=== PATIENT | male | born 1930 | race Caucasian/White ===

== ENCOUNTER 2016-11-22 16:15 | Inpatient (IN) | payer MEDICARE, BC ==
--- NOTE | 2016-11-22 16:30 | ER Document Report ---
ED Medical Screen (RME) - General Stated Complaint: GENERAL CONSENT Mode of Arrival: Medic Information source: Patient Notes: Patient called EMS for complaints of weakness for the past week. Patient did reports midsternal chest pain last night, but denies any at present. No nausea , vomiting, or diarrhea. Patient does report shortness of breath, he reports mild cough hx: COPD, CAD, diabetes, peripheral vascular disease, hypertension, home oxygen I have greeted and performed a rapid initial assessment of this patient. A comprehensive ED assessment and evaluation of the patient, analysis of test results and completion of the medical decision making process will be conducted by additional ED providers. - Related Data Allergies/Adverse Reactions: cortisone Allergy (Verified 11/22/16 16:35) Physical Exam - Vital signs Vitals: Temp Pulse Resp BP Pulse Ox 98.2 F 86 16 143/62 H 97 11/22/16 16:32 11/22/16 16:32 11/22/16 16:32 11/22/16 16:32 11/22/16 16:32 - Respiratory Respiratory status: No respiratory distress. No: Tachypnea Breath sounds: Nonproductive cough Course - Vital Signs Vital signs: Temp Pulse Resp BP Pulse Ox 98.2 F 86 16 143/62 H 97 11/22/16 16:32 11/22/16 16:32 11/22/16 16:32 11/22/16 16:32 11/22/16 16:32
[2016-11-22 17:16] LABS: ABSOLUTE BASOPHILS # (AUTO) 0.1 10^3/uL (0.0-0.2); ABSOLUTE EOSINOPHILS # (AUTO) 0.3 10^3/uL (0.0-0.6); ABSOLUTE LYMPHOCYTES (AUTO) 1.2 10^3/uL (0.5-4.7); ABSOLUTE MONOCYTES (AUTO) 0.7 10^3/uL (0.1-1.4); ABSOLUTE NEUT (AUTO) 4.6 10^3/uL (1.7-8.2); EOSINOPHILS % (AUTO) 4.8 % (0-6); HEMATOCRIT 37.2 % (37.9-51.0); HEMOGLOBIN 12.2 g/dL (13.5-17.0); HGB HCT DIFFERENCE -0.6; LYMPHOCYTES % (AUTO) 17.3 % (13-45); MEAN CORPUSCULAR HEMOGLOBIN 29.5 pg (27.0-33.4); MEAN CORPUSCULAR HGB CONC 32.6 g/dL (32.0-36.0); MEAN CORPUSCULAR VOLUME 90 fl (80-97); MONOCYTES % (AUTO) 9.8 % (3-13); RED BLOOD COUNT 4.12 10^6/uL (4.35-5.55); RED CELL DISTRIBUTION WIDTH 15.4 % (11.5-14.0); SEGMENTED NEUTROPHILS % (AUTO) 67.1 % (42-78); WHITE BLOOD COUNT 6.9 10^3/uL (4.0-10.5)
[2016-11-22 17:40] LABS: ALANINE AMINOTRANSFERASE 29 U/L (21-72); ALBUMIN 3.4 g/dL (3.5-5.0); ALKALINE PHOSPHATASE 110 U/L (38-126); ANION GAP 13 (5-19); ASPARTATE AMINO TRANSFERASE 21 U/L (17-59); BILIRUBIN,DIRECT 0.3 mg/dL (0.0-0.4); BILIRUBIN,TOTAL 0.7 mg/dL (0.2-1.3); BLOOD UREA NITROGEN 22 mg/dL (7-20); CALCIUM 8.8 mg/dL (8.4-10.2); CARBON DIOXIDE 28 mmol/L (22-30); CHLORIDE 104 mmol/L (98-107); CREATINE KINASE 76 U/L (55-170); CREATININE RESULT 0.96 mg/dL (0.52-1.25); GLUCOSE 101 mg/dL (75-110); MAGNESIUM 2.1 mg/dL (1.6-2.3); POTASSIUM 3.7 mmol/L (3.6-5.0); SODIUM 145.4 mmol/L (137-145); TOTAL PROTEIN 6.1 g/dL (6.3-8.2)
[2016-11-22 17:51] LABS: CREATINE KINASE MB 1.36 ng/mL (<4.55); TROPONIN I 0.019 ng/mL
--- NOTE | 2016-11-22 19:07 | EKG REPORT ---
SEVERITY:- ABNORMAL ECG - ATRIAL FIBRILLATION, V-RATE 67-101 LEFT BUNDLE BRANCH BLOCK : Confirmed by: Ed Vasquez MD 22-Nov-2016 19:07:13
--- NOTE | 2016-11-22 19:20 | ER Document Report ---
ED General - General Chief Complaint: Weakness Stated Complaint: GENERAL CONSENT Time seen by provider: 19:15 Mode of Arrival: Medic Notes: Patient is an 86-year-old male that comes emergency department for chief complaint of feeling weak, he has had one episode each day for the past week where he has almost fallen because of feeling weak, he states he feels more short of breath than usual, he has a mild cough intermittently, he states he had some discomfort in his chest last night but denies chest pain at this time. He denies fever, nausea or vomiting, dizziness, abdominal pain. Patient is on 2 L nasal cannula at all times, history of COPD, chronic respiratory failure , afib, CAD, type II diabetes insulin-dependent. His said his bedside. He is full code. TRAVEL OUTSIDE OF THE [place] IN LAST 30 DAYS: No - Related Data Allergies/Adverse Reactions: cortisone Allergy (Verified 11/22/16 16:35) Past Medical History - General Information source: Patient - Social History Smoking Status: Former Smoker Chew tobacco use (# tins/day): No Frequency of alcohol use: None Drug Abuse: None Lives with: Family Family History: Reviewed & Not Pertinent Patient has suicidal ideation: No Patient has homicidal ideation: No - Past Medical History Cardiac Medical History: Reports: Hx Coronary Artery Disease, Hx Hypercholesterolemia, Hx Hypertension Pulmonary Medical History: Reports: Hx COPD Renal/ Medical History: Reports: Hx End Stage Renal Disease - stage lll. Denies: Hx Peritoneal Dialysis Past Surgical History: Reports: Hx Abdominal Surgery - hernia, Hx Appendectomy, Hx Pancreatic Surgery, Hx Urinary Tract Surgery - prostate - Immunizations Hx Diphtheria, Pertussis, Tetanus Vaccination: Yes Review of Systems - Review of Systems Constitutional: See HPI EENT: No symptoms reported Cardiovascular: No symptoms reported Respiratory: See HPI Gastrointestinal: No symptoms reported Genitourinary: No symptoms reported Male Genitourinary: No symptoms reported Musculoskeletal: No symptoms reported Skin: No symptoms reported Hematologic/Lymphatic: No symptoms reported Neurological/Psychological: No symptoms reported Physical Exam - Vital signs Vitals: Temp Pulse Resp BP Pulse Ox 98.2 F 86 16 143/62 H 97 11/22/16 16:32 11/22/16 16:32 11/22/16 16:32 11/22/16 16:32 11/22/16 16:32 Interpretation: Normal - General General appearance: Other - slightly pale and frail In distress: None - HEENT Head: Normocephalic, Atraumatic Eyes: Normal Conjunctiva: Normal Extraocular movements intact: Yes Eyelashes: Normal Pupils: PERRL Sinus: Normal Nasal: Normal Mouth/Lips: Normal Mucous membranes: Normal Pharynx: Normal Neck: Normal - Respiratory Respiratory status: No respiratory distress, Tachypnea - intermittent. No: Respiratory distress Chest status: Nontender Breath sounds: Decreased air movement, Other - There are a few scattered rhonchi bilaterally, there are some rales heard in the bases lower on the right side Chest palpation: Normal - Cardiovascular Rhythm: Regular, Tachycardia Heart sounds: Normal auscultation, S1 appreciated, S2 appreciated Murmur: Yes - 2/6 heard throughout - Abdominal Inspection: Normal Distension: No distension Bowel sounds: Normal Tenderness: Nontender. No: Tender, Guarding - Back Back: Normal, Nontender. No: Tender - Extremities General upper extremity: Normal inspection, Nontender, Normal ROM, Normal strength General lower extremity: Normal inspection, Nontender, Normal ROM, Normal strength - Neurological Neuro grossly intact: Yes Cognition: Normal Orientation: AAOx4 [place] Coma Scale Eye Opening: Spontaneous [place] Coma Scale Verbal: Oriented [place] Coma Scale Motor: Obeys Commands [place] Coma Scale Total: 15 Speech: Normal Cranial nerves: Normal Cerebellar coordination: Normal Motor strength normal: LUE, RUE, LLE, RLE Additional motor exam normals: Equal deckhand maintenance Sensory: Normal - Psychological Associated symptoms: Normal affect, Normal mood - Skin Skin Temperature: Warm Skin Moisture: Dry Skin Color: Normal Course - Re-evaluation Re-evalutation: On exam patient has very mild tachypnea, no hypoxia, when he rests tachypnea resolves. A few coarse rhonchi with rales heard bilaterally on the right than on the left. No peripheral edema. Progressive weakness for about a week with cough, no fever, no leukocytosis. No tachycardia, no hypotension. Cardiac enzymes unremarkable. Patient stating upfront that he feels weak and he feels like he will fall down at home and he is afraid to go home. Chest x-ray showing bilateral infiltrates with pleural effusions, patient given a dose of Levaquin for potential pneumonia. BNP added because of uncertainty of pneumonia versus failure, shows elevation, no previous to compare, nonspecific at this time. Discussed with Dr. Mace, recommends CT without to clarify treatment and clinical picture. 11/23/16 CT showing bilateral infiltrates, pleural effusion, no evidence of CHF. Will talk to hospitalist for admission due to weakness, pneumonia, chronic respiratory failure. Confirmed with Dr. Mace. Patient also has fairly frequent episodes of bradycardia, sometimes down into the upper 30s. Cardizem most likely needs to be held or adjusted. Discussed with Dr. Desir, patient will be admitted to [facility]. - Vital Signs Vital signs: Temp Pulse Resp BP Pulse Ox 98.2 F 78 12 110/54 L 99 11/22/16 16:32 11/22/16 19:41 11/23/16 04:01 11/23/16 04:01 11/23/16 04:01 - Laboratory Result Diagrams: 11/22/16 16:45 11/22/16 16:45 Laboratory results interpreted by me: 11/22/16 11/22/16 11/22/16 16:45 16:45 19:10 RBC 4.12 L Hgb 12.2 L Hct 37.2 L RDW 15.4 H Sodium 145.4 H BUN 22 H NT-Pro-B Natriuret Pep Total Protein 6.1 L Albumin 3.4 L Urine Blood SMALL H 11/22/16 21:35 RBC Hgb Hct RDW Sodium BUN NT-Pro-B Natriuret Pep 03051 H Total Protein Albumin Urine Blood Discharge - Discharge Clinical Impression: Shortness of breath Pneumonia Qualifiers: Pneumonia type: due to unspecified organism Laterality: bilateral Lung location : unspecified part of lung Qualified Code(s): J18.9 - Pneumonia, unspecified organism Chronic respiratory failure Qualifiers: Respiratory failure complication: unspecified whether with hypoxia or hypercapnia Qualified Code(s): J96.10 - Chronic respiratory failure, unspecified whether with hypoxia or hypercapnia Disposition: ADMITTED INPATIENT Admitting Provider: Hospitalist Unit Admitted: [facility]
[2016-11-22 19:30] LABS: APPEARANCE,URINE CLEAR; BILIRUBIN,URINE NEGATIVE (NEGATIVE); GLUCOSE, URINE NEGATIVE (NEGATIVE); KETONES,URINE NEGATIVE (NEGATIVE); LEUKOCYTE ESTERASE,URINE NEGATIVE (NEGATIVE); NITRITE,URINE NEGATIVE (NEGATIVE); PROTEIN,URINE NEGATIVE (NEGATIVE); URINE SPECIFIC GRAVITY 1.011; UROBILINOGEN,URINE NEGATIVE mg/dL (<2.0)
[2016-11-22] MEDS ORDERED: LEVOFLOXACIN 750 MG/D5W RTU 150 ML IV ONE (21:27)
[2016-11-22 21:53] LABS: VENOUS BLOOD BASE EXCESS 2.7 mmol/L; VENOUS BLOOD HCO3 28.1 mmol/L (20-32); VENOUS BLOOD PCO2 45.9 mmHg (35-63); VENOUS BLOOD PH 7.4 (7.30-7.42)
[2016-11-23] MEDS ORDERED: ONDANSETRON HCL INJ/PF 4 MG/2 ML SDV IV PRN (08:47)
[2016-11-23] MEDS ORDERED: ALBUTEROL SULFATE 0.083% NEB 2.5 MG/3 ML AMPUL NEB PRN (08:53)
[2016-11-23] MEDS ORDERED: DEXTROSE 50%-WATER 25 GM/50 ML DISP.SYRIN IV PRN ×2 (08:56)
[2016-11-23] MEDS ORDERED: GLUCAGON,HUMAN RECOMB 1 MG INJ IM PRN (08:56)
[2016-11-23] MEDS ORDERED: INSULIN LISPRO 100 UNIT/ML 3 ML VIAL SUBCUT PRN (08:56)
[2016-11-23] MEDS ORDERED: DEXTROSE 40% GEL 15 GM TUBE PO PRN ×2 (08:56)
[2016-11-23] MEDS ORDERED: PHARMACY COMMUNICATION ORDER MC NR (09:15)
--- NOTE | 2016-11-23 09:30 | PDOC H&P ---
History of Present Illness Admission Date/PCP: 11/23/16 04:43 RANDY JEFFERY, Patient complains of: Weakness History of Present Illness: AISHWARYA MCLAUGHLIN JR is a 86 year old male with past medical history of oxygen dependent COPD, A. 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 Patient has had some dyspnea on exertion. He denies cough or fever. His states that he has not been taking his Lasix as much because he has urinary incontinence issues when he is on the Lasix. Patient's past medical history is notable for the fact that he also has had a right pleural effusion for which she had a Pleurx catheter placed and maintained for approximately one year. This was followed by Dr. Espinal of pulmonary medicine. Pleurx catheter was eventually discontinued. His last echocardiogram on record was in 2012 and at that time showed normal EF , LVH, moderate AR, moderate MR, moderate TR. Patient also has history of BPH and bladder dysfunction. He apparently has an implantable bladder stimulator. Emergency department provider noted that patient's heart rate was in the upper 30s on telemetry monitoring in the emergency department. At the time of my evaluation heart rate is in the upper 80s and patient is in atrial fibrillation. Patient currently has home health services in place with [facility]. Medications listed below have not been verified at the time of this documentation. Past Medical History Cardiac Medical History: Reports: Atrial Fibrillation, Congestive Heart Failure , Coronary Artery Disease, Hyperlipidema, Hypertension, Peripheral Vascular Disease Pulmonary Medical History: Reports: Chronic Obstructive Pulmonary Disease (COPD ) - Home oxygen dependent, Other - Pleural effusions Neurological Medical History: Reports: Ischemic CVA Endocrine Medical History: Reports: Diabetes Mellitus Type 2 - Steroid induced hyperglycemia Renal/ Medical History: Reports: Chronic Kidney Disease - Stage III Malignancy Medical History: Reports: Other GI Medical History: Reports: Gastroesophageal Reflux Disease Psychiatric Medical History: Reports: Dementia Hematology: Reports: Other - Thrombocytopenia-followed by Dr. Mathew, treated at [facility] with chemotherapy in the past Past Surgical History Past Surgical History: Reports: Appendectomy, Herniorrhaphy, Other - Prostate surgery, Implantable bladder stimulator Social History Information Source: Patient Lives with: Spouse/Significant other Smoking Status: Former Smoker Frequency of Alcohol Use: None Hx Recreational Drug Use: No Hx Prescription Drug Abuse: No - Advance Directive Resuscitation Status: Do Not Resuscitate Surrogate healthcare decision maker:: Family History Family History: Reviewed & Not Pertinent Parental Family History Reviewed: Yes Children Family History Reviewed: Yes Sibling(s) Family History Reviewed.: Yes Medication/Allergy Allergies/Adverse Reactions: cortisone Allergy (Verified 11/22/16 16:35) Review of Systems Constitutional: PRESENT: weakness. ABSENT: chills, fever(s), headache(s), weight gain, weight loss Eyes: ABSENT: visual disturbances Ears: ABSENT: hearing changes Cardiovascular: PRESENT: dyspnea on exertion. ABSENT: chest pain, edema, orthropnea, palpitations Respiratory: ABSENT: cough, hemoptysis Gastrointestinal: ABSENT: abdominal pain, constipation, diarrhea, hematemesis, hematochezia, nausea, vomiting Genitourinary: ABSENT: dysuria, hematuria Musculoskeletal: ABSENT: joint swelling Integumentary: ABSENT: rash, wounds Neurological: ABSENT: abnormal gait, abnormal speech, confusion, dizziness, focal weakness, syncope Psychiatric: ABSENT: anxiety, depression, homidical ideation, suicidal ideation Endocrine: ABSENT: cold intolerance, heat intolerance, polydipsia, polyuria Hematologic/Lymphatic: ABSENT: easy bleeding, easy bruising Physical Exam Vital Signs: Temp Pulse Resp BP Pulse Ox 98.2 F 78 14 135/82 H 99 11/22/16 16:32 11/22/16 19:41 11/23/16 08:01 11/23/16 08:01 11/23/16 06:01 PHYSICAL EXAM: GENERAL: Appears well, no acute distress HEENT: Normocephalic, no scleral icterus, conjunctiva clear, EOEM intact, PERRLA , moist mucous membranes NECK: trachea midline, no thyromegally RESPIRATORY: Crackles in both anterior lung chapin CARDIAC: Regular rate and rhythm, no murmur/nate/rub ABDOMEN: Soft, no distension, no tenderness, no guarding, normal bowel sounds, negative Moreland sign RECTAL: deferred : deferred EXTREMITIES: Pitting edema in bilateral lower extremities MUSCULOSKELETAL: No joint swelling or deformity VASCULAR: normal peripheral pulses NEUROLOGIC: Alert, oriented to person/place/time, normal speech, cranial nerves grossly intact, 5/5 strength in all extremities, tactile sensation intact in all extremities SKIN: No rash, no wounds, no worrisome skin lesions PSYCHIATRIC: Normal mood, normal affect Results Impressions: Chest X-Ray 11/22/16 16:37 IMPRESSION: Diffuse interstitial thickening. Bilateral basilar airspace disease and moderate pleural effusions. Chest CT 11/22/16 22:57 IMPRESSION: Consolidation is present in both lower lobes, left greater than right. Moderately large left pleural effusion. Small right pleural effusion. Assessment & Plan - Diagnosis (1) Acute on chronic respiratory failure with hypoxemia Is this a current diagnosis for this admission?: YesPlan: Patient is chronic home oxygen dependent at baseline. Continue oxygen supplementation. Consult Dr. Espinal of pulmonary medicine as he is familiar with this patient. I have discussed patient with Dr. Espinal today. (2) Heart failure, diastolic, with acute decompensation Is this a current diagnosis for this admission?: YesPlan: Patient has acutely decompensated congestive heart failure secondary to diastolic dysfunction and valvular heart disease. Repeat echocardiogram as patient has not had an echocardiogram in 4 years. He is normally followed by Dr. Marley of cardiology. Start Lasix 20 mg IV every 12 hours. Monitor strict I/O's. Continue Toprol-XL 25 mg daily. (3) COPD (chronic obstructive pulmonary disease) Is this a current diagnosis for this admission?: YesPlan: When necessary albuterol. (4) Bronchiectasis Is this a current diagnosis for this admission?: Yes (5) Pleural effusion Is this a current diagnosis for this admission?: YesPlan: Patient has moderate to large left pleural effusion, small right pleural effusion. This is likely secondary to decompensated CHF. Treat CHF. Consult Dr. Espinal of pulmonary medicine. (6) Hypertension Is this a current diagnosis for this admission?: Yes (7) Atrial fibrillation Qualifiers: Atrial fibrillation type: chronic Qualified Code(s): I48.2 - Chronic atrial fibrillation Is this a current diagnosis for this admission?: YesPlan: Decrease Cardizem CD to 180 mg daily secondary to bradycardia noted on telemetry. Continue Toprol-XL 25 mg daily. I have discussed this with Dr. Duval's patient's primary care provider and he states that patient is not on full anticoagulation secondary to bleeding complications and prior thrombocytopenia. (8) Remote history of stroke Is this a current diagnosis for this admission?: YesPlan: Continue Lipitor. Start aspirin 81 mg daily. (9) Diabetes mellitus Is this a current diagnosis for this admission?: YesPlan: According to patient's this is only issue when he is on corticosteroids. He does not take chronic medications for this. I will check Accu-Cheks twice daily and administer sliding scale insulin as needed. (10) Urinary incontinence Is this a current diagnosis for this admission?: YesPlan: Continue home dose of Mybetriq. Patient has implantable bladder stimulator. (11) Pneumonia Qualifiers: Pneumonia type: due to unspecified organism Laterality: bilateral Lung location: unspecified part of lung Qualified Code(s): J18.9 - Pneumonia, unspecified organism Is this a current diagnosis for this admission?: YesPlan: Chest CT shows bilateral airspace disease. Patient is afebrile and has normal white blood count. Continue Levaquin initiated in the emergency department pending blood cultures and sputum cultures. (12) DNR (do not resuscitate) Is this a current diagnosis for this admission?: Yes - Time Time Spent: Greater than 70 Minutes Anticipated discharge: Home with Homehealth
[2016-11-23] MEDS ORDERED: LEVOFLOXACIN 750 MG/D5W RTU 750 MG/150 ML RTUPB IV SCH (10:00)
[2016-11-23] MEDS: POTASSIUM CHLORIDE 10 MEQ TABLET.SA PO SCH ×2 (11:47→21:13)
[2016-11-23] MEDS: DILTIAZEM HCL 180 MG CAPSULE.CR PO SCH (11:47)
[2016-11-23] MEDS: ASPIRIN 81 MG TABLET, ENT COATED PO SCH (11:48)
[2016-11-23] MEDS: FUROSEMIDE INJ/PF 20 MG/2 ML SDV IV SCH ×2 (11:48→21:12)
[2016-11-23] MEDS: METOPROLOL SUCCINATE 25 MG TAB.SR.24H PO SCH (11:48)
[2016-11-23] MEDS: LISINOPRIL 10 MG TABLET PO SCH (11:49)
[2016-11-23 14:13] LABS: PARTIAL THROMBOPLASTIN TIME 28.9 SEC (23.5-35.8); PROTHROMBIN TIME 14.7 SEC (11.4-15.4)
[2016-11-23] MEDS: HEPARIN SOD (PORCINE) 5,000 UNIT/ML 1 ML SYRINGE SUBCUT SCH ×2 (14:24→21:18)
[2016-11-23] MEDS: LEVOFLOXACIN 750 MG/D5W RTU 750 MG/150 ML RTUPB IV SCH (15:50)
[2016-11-23 17:07] LABS: FLUID APPEARANCE HAZY; FLUID RBC DILUENT USED NONE USED; FLUID RBC DILUTION FACTOR 1; FLUID RBC SIDE 1 167; FLUID RBC SIDE 2 163; FLUID TYPE PLEURAL; TOTAL RBC SQUARES COUNTED FLD 25
--- NOTE | 2016-11-23 19:53 | XCELERA REPORT ---
[address] [address] Transthoracic Echocardiogram Report Name: AISHWARYA MCLAUGHLIN JR Age: 86 yrs Gender: Male : 1930 Patient Status: Inpatient Patient Location: \S\[facility]\S\A Study Date: 11/23/2016 10:11 AM Height: 67 in Weight: 132 lb BSA: 1.7 m2 Procedure: A complete two-dimensional transthoracic echocardiogram was performed (2D, M-mode, spectral and color flow Doppler). The study was technically difficult with many images being suboptimal in quality. Reason For Study: acute chf Ordering Physician: RASHAWN PEREZ Performed By: Tico Payton Interpretation Summary Left ventricular systolic function is mildly reduced. The Ejection Fraction estimate is 40-45% There is borderline concentric left ventricular hypertrophy. The left ventricle is borderline dilated. LV diastolic function could not be adequately assessed. Regional wall motion abnormalities cannot be excluded due to limited visualization. The right ventricular systolic function is normal. The right atrium is mildly dilated. The left atrium is severely dilated. There is a moderate amount of mitral regurgitation There is no mitral valve stenosis. There is a mild amount of aortic regurgitation There is a moderate amount of tricuspid regurgitation There is servere pulmonary hypertension by echo Right ventricular systolic pressure is estimated to be elevated at >60mmHg. The aortic root is not well visualized. The inferior vena cava appeared normal and decreased > 50% with respiration (RAP 5-10 mmHg) There is no pericardial effusion. MMode/2D Measurements \T\ Calculations RVDd: 2.0 cm LVIDd: 5.5 cm FS: 21.8 % Ao root diam: IVSd: 1.1 cm LVIDs: 4.3 cm EDV(Teich): 3.2 cm LVPWd: 1.0 cm 145.1 ml Ao root area: ESV(Teich): 81.9 ml 8.2 cm2 EF(Teich): LA dimension: 43.6 % 4.9 cm LVLd ap4: 8.4 cm SV(MOD-sp4): 47.0 ml LA A2Cs: LA A4Cs: 33.5 cm2 EDV(MOD-sp4): 34.1 cm2 128.0 ml LVLs ap4: 8.1 cm ESV(MOD-sp4): 81.0 ml EF(MOD-sp4): 36.7 % LA length: 6.8 cm LA Vol Index (BP): LA Volume: 84.6 ml/m2 143.4 ml Doppler Measurements \T\ Calculations MV E max rakel: MV P1/2t max rakel: Ao V2 max: AI max rakel: 116.3 cm/sec 118.4 cm/sec 118.7 cm/sec 393.2 cm/sec MV P1/2t: 51.2 msec Ao max PG: AI max PG: MVA(P1/2t): 4.3 cm2 5.6 mmHg 62.0 mmHg MV dec slope: AI dec slope: 677.0 cm/sec2 206.3 cm/sec2 AI P1/2t: 558.2 msec LV V1 max PG: PA V2 max: PI end-d rakel: TR max rakel: 2.1 mmHg 71.0 cm/sec 137.1 cm/sec 407.8 cm/sec LV V1 max: PA max P.0 mmHg TR max P.9 cm/sec 66.9 mmHg RVSP(TR): 76.9 mmHg RAP systole: 10.0 mmHg Left Ventricle The left ventricle is borderline dilated. There is borderline concentric left ventricular hypertrophy. Left ventricular systolic function is mildly reduced. The Ejection Fraction estimate is 40-45%. LV diastolic function could not be adequately assessed. Regional wall motion abnormalities cannot be excluded due to limited visualization. Right Ventricle The right ventricle is grossly normal size. There is normal right ventricular wall thickness. The right ventricular systolic function is normal. Atria The right atrium is mildly dilated. The left atrium is severely dilated. Interarterial septum not well visualized and not well dopplered. Cannot comment on ASD/PFO presence. Mitral Valve The mitral valve leaflets are sclerotic and show some degree of functional abnormality. There is no mitral valve stenosis. There is a moderate amount of mitral regurgitation. Aortic Valve The aortic valve is grossly normal. There is no aortic valve stenosis. There is a mild amount of aortic regurgitation. Tricuspid Valve The tricuspid valve is not well visualized, but is grossly normal. There is no tricuspid stenosis. There is a moderate amount of tricuspid regurgitation. There is servere pulmonary hypertension by echo. Right ventricular systolic pressure is estimated to be elevated at >60mmHg. Pulmonic Valve The pulmonic valve is not well visualized. Great Vessels The aortic root is not well visualized. The inferior vena cava appeared normal and decreased > 50% with respiration (RAP 5-10 mmHg). Effusions There is no pericardial effusion. : RASHAWN PEREZ > Ana Maria Ford
--- NOTE | 2016-11-23 20:56 | PDOC CONSULTATION ---
Consultation Consult Date: 11/23/16 Attending physician:: NANCY CHRISTINA Consult reason:: effusions History of Present Illness Admission Date/PCP: 11/23/16 08:48 RANDY JEFFERY, History of Present Illness: AISHWARYA MCLAUGHLIN JR is a 86 year old male with past medical history of oxygen dependent COPD, A. 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 Patient has had some dyspnea on exertion. He denies cough or fever. His states that he has not been taking his Lasix as much because he has urinary incontinence issues when he is on the Lasix. unfortunately he has adjusted his diuretic therapy w/o medical advice;resulting in increasing dyspnea.He denies nausea,vomiting,fever,chill currently talking is limited by resipiratory rate Past Medical History Cardiac Medical History: Reports: Atrial Fibrillation, Congestive Heart Failure , Coronary Artery Disease, Hyperlipidema, Hypertension, Peripheral Vascular Disease Pulmonary Medical History: Reports: Chronic Obstructive Pulmonary Disease (COPD ) - Home oxygen dependent, Other - Pleural effusions EENT Medical History: Reports: Other - Thrombocytopenia-followed by Dr. Mathew , treated at [facility] with chemotherapy in the past Neurological Medical History: Reports: Ischemic CVA Endocrine Medical History: Reports: Diabetes Mellitus Type 2 - Steroid induced hyperglycemia Renal/ Medical History: Reports: Chronic Kidney Disease - Stage III, End Stage Renal Disease - stage lll Malignancy Medical History: Reports: Other GI Medical History: Reports: Gastroesophageal Reflux Disease Psychiatric Medical History: Reports: Dementia Hematology: Reports: Other - Thrombocytopenia-followed by Dr. Mathew, treated at [facility] with chemotherapy in the past Past Surgical History Past Surgical History: Reports: Appendectomy, Herniorrhaphy, Other - Prostate surgery, Implantable bladder stimulator Social History Lives with: Spouse/Significant other Smoking Status: Former Smoker Passive smoke exposure as: Both Frequency of Alcohol Use: None Hx Recreational Drug Use: No Hx Prescription Drug Abuse: No Do you have pets?: No Have you had any respiratory illnesses as a child?: No Have you been exposed to any sick contacts recently?: No Have you had any recent respiratory illnesses?: No Have you travelled outside of [place] in the past 12 months?: No - Advance Directive Resuscitation Status: Do Not Resuscitate Family History Family History: Reviewed & Not Pertinent Parental Family History Reviewed: Yes Children Family History Reviewed: Yes Sibling(s) Family History Reviewed.: Yes Medication/Allergy Home Medications: Albuterol Sulfate [Proair HFA] 2 puff IH Q4HP PRN 11/23/16 Alendronate Sodium [Fosamax "Weekly" 35 mg Tablet] 35 mg PO ENGLISH 11/23/16 Atorvastatin Calcium [Lipitor 20 mg Tablet] 20 mg PO QHS 11/23/16 Diltiazem HCl [Cartia Xt] 240 mg PO DAILY 11/23/16 Furosemide [Lasix] 40 mg PO BID 11/23/16 Iron Ps Cmplx/Vit B12/FA [Poly-Iron 150 Forte Capsule] 1 cap PO DAILY 11/23/16 Lisinopril [Prinivil 10 mg Tablet] 10 mg PO BID 11/23/16 Metoprolol Tartrate [Lopressor 25 mg Tablet] 12.5 mg PO BID 11/23/16 Nitroglycerin [Nitro-Dur 5 mg (0.2 mg/Hr) Transdermal Patch] 1 patch TOP Q12 Pantoprazole Sodium [Protonix] 40 mg PO DAILY 11/23/16 Potassium Chloride [Klor-Con 10] 10 meq PO BID 11/23/16 Allergies/Adverse Reactions: cortisone Allergy (Verified 11/22/16 16:35) Physical Exam Vital Signs: Temp Pulse Resp BP Pulse Ox 98.2 F 78 23 H 138/74 H 99 11/22/16 16:32 11/22/16 19:41 11/23/16 12:02 11/23/16 12:02 11/23/16 06:01 General appearance: PRESENT: cooperative, disheveled, mild distress, thin, well- developed Head exam: PRESENT: atraumatic, normocephalic Eye exam: PRESENT: conjunctiva pink, EOMI Mouth exam: PRESENT: dry mucosa, neck supple Neck exam: ABSENT: carotid bruit, JVD, lymphadenopathy, thyromegaly Respiratory exam: PRESENT: crackles, decreased breath sounds, prolonged expiratory phas, tachypnea, other - absent breath sounds r lateral and post chest rodriguez Cardiovascular exam: PRESENT: irregular rhythm, systolic murmur Pulses: PRESENT: normal radial pulses GI/Abdominal exam: PRESENT: ascites, normal bowel sounds, soft. ABSENT: distended, guarding, mass, organolmegaly, rebound, tenderness Rectal exam: PRESENT: deferred Extremities exam: PRESENT: +2 edema - L Lext>R L ext Psychiatric exam: PRESENT: flat affect Skin exam: PRESENT: dry, pallor, warm, other - subq eccymosis ext Results Impressions: Chest X-Ray 11/22/16 16:37 IMPRESSION: Diffuse interstitial thickening. Bilateral basilar airspace disease and moderate pleural effusions. Chest CT 11/22/16 22:57 IMPRESSION: Consolidation is present in both lower lobes, left greater than right. Moderately large left pleural effusion. Small right pleural effusion. Assessment & Plan - Diagnosis (1) Acute on chronic respiratory failure with hypoxemia Is this a current diagnosis for this admission?: YesPlan: pleural effusion chf (2) Atrial fibrillation Qualifiers: Atrial fibrillation type: chronic Qualified Code(s): I48.2 - Chronic atrial fibrillation Is this a current diagnosis for this admission?: YesPlan: stable rate (3) COPD (chronic obstructive pulmonary disease) Is this a current diagnosis for this admission?: Yes (4) DNR (do not resuscitate) Is this a current diagnosis for this admission?: Yes (5) Pleural effusion Is this a current diagnosis for this admission?: YesPlan: mild distress asked radiology for stat r thoracentesis they aggreed
[2016-11-23] MEDS: ATORVASTATIN CALCIUM 20 MG TABLET PO SCH (21:12)
[2016-11-23] MEDS: NITROGLYCERIN 5 MG (0.2 MG/HR) PATCH.TD24 TOP SCH (21:29)
[2016-11-23] MEDS ORDERED: NITROGLYCERIN 5 MG (0.2 MG/HR) PATCH.TD24 TOP SCH (22:00)
[2016-11-24 04:51] LABS: ABSOLUTE EOSINOPHILS # (AUTO) 0.2 10^3/uL (0.0-0.6); ABSOLUTE MONOCYTES (AUTO) 0.9 10^3/uL (0.1-1.4); BASOPHILS % (AUTO) 0.5 % (0-2); EOSINOPHILS % (AUTO) 2.4 % (0-6); HEMATOCRIT 34.9 % (37.9-51.0); HEMOGLOBIN 11.6 g/dL (13.5-17.0); HGB HCT DIFFERENCE -0.1; LYMPHOCYTES % (AUTO) 10.5 % (13-45); MEAN CORPUSCULAR HEMOGLOBIN 29.5 pg (27.0-33.4); MEAN CORPUSCULAR HGB CONC 33.1 g/dL (32.0-36.0); MEAN CORPUSCULAR VOLUME 89 fl (80-97); MONOCYTES % (AUTO) 10.1 % (3-13); RED BLOOD COUNT 3.91 10^6/uL (4.35-5.55); RED CELL DISTRIBUTION WIDTH 15.2 % (11.5-14.0); SEGMENTED NEUTROPHILS % (AUTO) 76.5 % (42-78); WHITE BLOOD COUNT 9.1 10^3/uL (4.0-10.5)
[2016-11-24 05:26] LABS: FREE T3 2.89 pg/mL (2.77-5.27)
[2016-11-24 05:39] LABS: THYROID STIMULATING HORMONE 2.62 uIU/mL (0.47-4.68)
[2016-11-24] MEDS: HEPARIN SOD (PORCINE) 5,000 UNIT/ML 1 ML SYRINGE SUBCUT SCH ×3 (06:47→21:54)
[2016-11-24] MEDS: LANSOPRAZOLE 30 MG TAB.RAP.DR PO SCH (06:47)
[2016-11-24] MEDS: DILTIAZEM HCL 180 MG CAPSULE.CR PO SCH (09:31)
[2016-11-24] MEDS: ASPIRIN 81 MG TABLET, ENT COATED PO SCH (09:31)
[2016-11-24] MEDS: NITROGLYCERIN 5 MG (0.2 MG/HR) PATCH.TD24 TOP SCH ×2 (09:32→21:54)
[2016-11-24] MEDS: FUROSEMIDE INJ/PF 20 MG/2 ML SDV IV SCH ×2 (09:32→21:54)
[2016-11-24] MEDS: METOPROLOL SUCCINATE 25 MG TAB.SR.24H PO SCH (09:33)
[2016-11-24] MEDS: LISINOPRIL 10 MG TABLET PO SCH (09:33)
[2016-11-24] MEDS: POTASSIUM CHLORIDE 10 MEQ TABLET.SA PO SCH ×2 (09:34→21:54)
[2016-11-24] MEDS ORDERED: VIT B12 PO SCH (10:00)
[2016-11-24] MEDS ORDERED: IRON PS CMPLX PO SCH (10:00)
[2016-11-24] MEDS ORDERED: [UNRECOGNIZED DRUG - OTHER] PO SCH (10:00)
[2016-11-24] MEDS ORDERED: LORAZEPAM INJ 2 MG/1 ML VIAL IV PRN (12:15)
--- NOTE | 2016-11-24 15:59 | PDOC PROGRESS REPORT ---
Subjective Progress Note for:: 11/24/16 Subjective:: awake feels better Physical Exam Vital Signs: Temp Pulse Resp BP Pulse Ox 97.8 F 86 20 148/69 H 99 11/24/16 08:00 11/24/16 08:00 11/24/16 08:00 11/24/16 08:00 11/24/16 08:00 Pulse Oximeter Continuous Start: 11/23/16 15: 49 Freq: RTQ4 Status: Active Document 11/24/16 03:13 [facility] (Rec: 11/24/16 03:13 [facility] [email or web address]) Pulse Oximetry Assessment Oxygen Saturation (92-100) 95 Oxygen Flow Rate (L/min) 2.0 Oxygen Delivery Method Nasal Cannula Fraction of Inspired Oxygen (FIO2) 28 Equipment Usage Equipment in Use Continuous SpO2 Machine # [id number] Intake & Output 11/23/16 11/24/16 11/25/16 06:59 06:59 06:59 Intake Total 510 Output Total 1500 Balance -990 Weight 60.2 kg General appearance: PRESENT: no acute distress, disheveled, thin, well-developed Head exam: PRESENT: atraumatic, normocephalic Eye exam: PRESENT: conjunctiva pale, EOMI Mouth exam: PRESENT: neck supple, tongue midline Neck exam: ABSENT: carotid bruit, JVD, lymphadenopathy, thyromegaly Respiratory exam: PRESENT: decreased breath sounds, prolonged expiratory phas, rhonchi, unlabored Cardiovascular exam: PRESENT: irregular rhythm - bs decreased bibasilar L>R Pulses: PRESENT: normal radial pulses GI/Abdominal exam: PRESENT: normal bowel sounds, soft. ABSENT: distended, guarding, mass, organolmegaly, rebound, tenderness Gentrourinary exam: PRESENT: indwelling catheter Musculoskeletal exam: PRESENT: normal inspection Neurological exam: PRESENT: awake Psychiatric exam: PRESENT: normal mood Skin exam: PRESENT: dry, warm Results Laboratory Results: 11/24/16 03:58 11/23/16 11/24/16 11/24/16 15:15 03:58 03:58 WBC 9.1 RBC 3.91 L Hgb 11.6 L Hct 34.9 L MCV 89 MCH 29.5 MCHC 33.1 RDW 15.2 H Plt Count 233 Seg Neutrophils % 76.5 Lymphocytes % 10.5 L Monocytes % 10.1 Eosinophils % 2.4 Basophils % 0.5 Absolute Neutrophils 7.0 Absolute Lymphocytes 1.0 Absolute Monocytes 0.9 Absolute Eosinophils 0.2 Absolute Basophils 0.0 Magnesium 1.9 TSH Free T4 Free T3 pg/mL Fluid Type PLEURAL Fluid Source LUNG Fluid Color YELLOW Fluid Appearance HAZY Fluid Viscosity SLIGHTLY VISCOUS Fluid WBC 277 Fluid RBC 1650 11/24/16 03:58 WBC RBC Hgb Hct MCV MCH MCHC RDW Plt Count Seg Neutrophils % Lymphocytes % Monocytes % Eosinophils % Basophils % Absolute Neutrophils Absolute Lymphocytes Absolute Monocytes Absolute Eosinophils Absolute Basophils Magnesium TSH 2.62 Free T4 1.30 Free T3 pg/mL 2.89 Fluid Type Fluid Source Fluid Color Fluid Appearance Fluid Viscosity Fluid WBC Fluid RBC Impressions: Chest CT 11/22/16 22:57 IMPRESSION: Consolidation is present in both lower lobes, left greater than right. Moderately large left pleural effusion. Small right pleural effusion. Thoracentesis Ultrasound 11/23/16 13:02 IMPRESSION: SUCCESSFUL THORACENTESIS USING ULTRASOUND GUIDANCE. Chest X-Ray 11/24/16 06:00 IMPRESSION: Stable appearance of bilateral pleural effusions. Assessment & Plan - Diagnosis (1) Acute on chronic respiratory failure with hypoxemia Is this a current diagnosis for this admission?: YesPlan: improvement in pleural effusion and chf (2) Atrial fibrillation Qualifiers: Atrial fibrillation type: chronic Qualified Code(s): I48.2 - Chronic atrial fibrillation Is this a current diagnosis for this admission?: YesPlan: stable rate (3) COPD (chronic obstructive pulmonary disease) Is this a current diagnosis for this admission?: Yes (4) DNR (do not resuscitate) Is this a current diagnosis for this admission?: Yes (5) Pleural effusion Is this a current diagnosis for this admission?: Yes - Time Critical Time spent with patient: 25-34 minutes
--- NOTE | 2016-11-24 18:30 | PDOC PROGRESS REPORT ---
Subjective Progress Note for:: 11/24/16 Subjective:: AISHWARYA MCLAUGHLIN JR is a 86 year old male with past medical history of oxygen dependent COPD, A. 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 Patient has had some dyspnea on exertion. He denies cough or fever. His states that he has not been taking his Lasix as much because he has urinary incontinence issues when he is on the Lasix. Patient's past medical history is notable for the fact that he also has had a right pleural effusion for which he had a Pleurx catheter placed and maintained for approximately one year. This was followed by Dr. Espinal of pulmonary medicine. Pleurx catheter was eventually discontinued. His last echocardiogram on record was in 2012 and at that time showed normal EF , LVH, moderate AR, moderate MR, moderate TR. Patient also has history of BPH and bladder dysfunction. He apparently has an implantable bladder stimulator. Patient has home health services in place with [facility]. Yesterday, patient had a 600 mL thoracentesis yielding clear yellow fluid. Today, she tells me he is breathing much better and denies shortness of breath. Physical Exam Vital Signs: Temp Pulse Resp BP Pulse Ox 98 F 76 20 140/75 H 94 11/24/16 16:00 11/24/16 16:00 11/24/16 16:00 11/24/16 16:00 11/24/16 16:00 Pulse Oximeter Continuous Start: 11/23/16 15: 49 Freq: RTQ4 Status: Active Document 11/24/16 15:55 [facility] (Rec: 11/24/16 17:18 [facility] [email or web address]) Pulse Oximetry Assessment Oxygen Saturation (92-100) 97 Oxygen Flow Rate (L/min) 2 Oxygen Delivery Method Nasal Cannula Equipment Usage Equipment in Use Continuous SpO2 Machine # [id number] Intake & Output 11/23/16 11/24/16 11/25/16 06:59 06:59 06:59 Intake Total 510 474 Output Total 1500 1000 Balance -990 -526 Weight 60.2 kg Additional comments: GENERAL: Appears well, no acute distress HEENT: Normocephalic, no scleral icterus, conjunctiva clear, EOEM intact, PERRLA , moist mucous membranes NECK: trachea midline, no thyromegally RESPIRATORY: diminished breath sounds at both bases CARDIAC: Regular rate and rhythm, no murmur/nate/rub ABDOMEN: Soft, no distension, no tenderness, no guarding, normal bowel sounds, negative Moreland sign RECTAL: deferred : deferred EXTREMITIES: 2+ Pitting edema in bilateral lower extremities MUSCULOSKELETAL: No joint swelling or deformity VASCULAR: normal peripheral pulses NEUROLOGIC: Alert, oriented to person/place/time, normal speech, cranial nerves grossly intact, 5/5 strength in all extremities, tactile sensation intact in all extremities SKIN: No rash, no wounds, no worrisome skin lesions PSYCHIATRIC: Normal mood, normal affect Results Laboratory Results: 11/24/16 03:58 11/24/16 11/24/16 11/24/16 03:58 03:58 03:58 WBC 9.1 RBC 3.91 L Hgb 11.6 L Hct 34.9 L MCV 89 MCH 29.5 MCHC 33.1 RDW 15.2 H Plt Count 233 Seg Neutrophils % 76.5 Lymphocytes % 10.5 L Monocytes % 10.1 Eosinophils % 2.4 Basophils % 0.5 Absolute Neutrophils 7.0 Absolute Lymphocytes 1.0 Absolute Monocytes 0.9 Absolute Eosinophils 0.2 Absolute Basophils 0.0 Magnesium 1.9 TSH 2.62 Free T4 1.30 Free T3 pg/mL 2.89 Impressions: Chest CT 11/22/16 22:57 IMPRESSION: Consolidation is present in both lower lobes, left greater than right. Moderately large left pleural effusion. Small right pleural effusion. Thoracentesis Ultrasound 11/23/16 13:02 IMPRESSION: SUCCESSFUL THORACENTESIS USING ULTRASOUND GUIDANCE. Chest X-Ray 11/24/16 06:00 IMPRESSION: Stable appearance of bilateral pleural effusions. Assessment & Plan - Diagnosis (1) Acute on chronic respiratory failure with hypoxemia Is this a current diagnosis for this admission?: YesPlan: Patient is on home oxygen. We'll continue current oxygen supplementation. (2) Heart failure, diastolic, with acute decompensation Is this a current diagnosis for this admission?: YesPlan: Agent has chronic congestive heart failure due to diastolic dysfunction and valvular heart disease. The patient had acute compensation likely from reducing the Lasix dose. He currently feels better after thoracentesis yesterday. We will continue to monitor the I's and O's on current Rx. (3) COPD (chronic obstructive pulmonary disease) Is this a current diagnosis for this admission?: YesPlan: Followed by Dr. Espinal. (4) Bronchiectasis Is this a current diagnosis for this admission?: Yes (5) Pleural effusion Is this a current diagnosis for this admission?: YesPlan: Status post thoracentesis. 600 mL of a clear yellow fluid was withdrawn. Laboratory studies pending. (6) Hypertension Is this a current diagnosis for this admission?: Yes (7) Atrial fibrillation Qualifiers: Atrial fibrillation type: chronic Qualified Code(s): I48.2 - Chronic atrial fibrillation Is this a current diagnosis for this admission?: Yes (8) Remote history of stroke Is this a current diagnosis for this admission?: YesPlan: Continue aspirin and statin. (9) Diabetes mellitus Is this a current diagnosis for this admission?: YesPlan: Continue current monitoring and Rx. (10) Urinary incontinence Is this a current diagnosis for this admission?: Yes (11) Pneumonia Qualifiers: Pneumonia type: due to unspecified organism Laterality: bilateral Lung location: unspecified part of lung Qualified Code(s): J18.9 - Pneumonia, unspecified organism Is this a current diagnosis for this admission?: YesPlan: The CT chest showed bilateral airspace disease. The patient has been afebrile and has a normal white blood count. We continue Levaquin which was started in the emergency department pending blood cultures and sputum culture
[2016-11-24] MEDS: ATORVASTATIN CALCIUM 20 MG TABLET PO SCH (21:54)
[2016-11-25 05:41] LABS: ANION GAP 13 (5-19); BLOOD UREA NITROGEN 21 mg/dL (7-20); CALCIUM 8.4 mg/dL (8.4-10.2); CARBON DIOXIDE 25 mmol/L (22-30); CHLORIDE 104 mmol/L (98-107); CREATININE RESULT 0.82 mg/dL (0.52-1.25); GLUCOSE 109 mg/dL (75-110); POTASSIUM 3.7 mmol/L (3.6-5.0); SODIUM 142.1 mmol/L (137-145)
[2016-11-25] MEDS: LANSOPRAZOLE 30 MG TAB.RAP.DR PO SCH (06:59)
[2016-11-25] MEDS: HEPARIN SOD (PORCINE) 5,000 UNIT/ML 1 ML SYRINGE SUBCUT SCH ×3 (07:02→22:58)
[2016-11-25] MEDS: ACETAMINOPHEN 325 MG TABLET PO PRN ×3 (07:04→18:04)
[2016-11-25] MEDS: LISINOPRIL 10 MG TABLET PO SCH (13:08)
[2016-11-25] MEDS: METOPROLOL SUCCINATE 25 MG TAB.SR.24H PO SCH (13:08)
[2016-11-25] MEDS: DILTIAZEM HCL 180 MG CAPSULE.CR PO SCH (13:09)
[2016-11-25] MEDS: ASPIRIN 81 MG TABLET, ENT COATED PO SCH (13:10)
[2016-11-25] MEDS: POTASSIUM CHLORIDE 10 MEQ TABLET.SA PO SCH ×2 (13:10→22:57)
[2016-11-25] MEDS: FUROSEMIDE INJ/PF 20 MG/2 ML SDV IV SCH ×2 (13:11→22:57)
[2016-11-25] MEDS: NITROGLYCERIN 5 MG (0.2 MG/HR) PATCH.TD24 TOP SCH ×2 (13:11→22:57)
[2016-11-25] MEDS: LEVOFLOXACIN 750 MG/D5W RTU 750 MG/150 ML RTUPB IV SCH (14:03)
[2016-11-25] MEDS ORDERED: OXYCODONE HCL IR 5 MG TABLET PO PRN (15:33)
--- NOTE | 2016-11-25 17:21 | PDOC PROGRESS REPORT ---
Subjective Progress Note for:: 11/25/16 Subjective:: AISHWARYA MCLAUGHLIN JR is a 86 year old male with past medical history of oxygen dependent COPD, A. 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 Patient has had some dyspnea on exertion. He denies cough or fever. His states that he has not been taking his Lasix as much because he has urinary incontinence issues when he is on the Lasix. Patient's past medical history is notable for the fact that he also has had a right pleural effusion for which he had a Pleurx catheter placed and maintained for approximately one year. This was followed by Dr. Espinal of pulmonary medicine. Pleurx catheter was eventually discontinued. His last echocardiogram on record was in 2012 and at that time showed normal EF , LVH, moderate AR, moderate MR, moderate TR. Patient also has history of BPH and bladder dysfunction. He apparently has an implantable bladder stimulator. Patient has home health services in place with [facility]. On 11/23/2016 the patient had a 600 mL thoracentesis yielding clear yellow fluid. Since then, he tells me he is breathing much better and denies shortness of breath. Fluid intake has been generally less than urinary output. Physical Exam Vital Signs: Temp Pulse Resp BP Pulse Ox 98.0 F 78 18 122/56 L 97 11/25/16 15:29 11/25/16 15:29 11/25/16 15:29 11/25/16 15:29 11/25/16 12:00 Pulse Oximeter Continuous Start: 11/23/16 15: 49 Freq: RTQ4 Status: Active Document 11/25/16 12:00 [facility] (Rec: 11/25/16 12:50 [facility] [email or web address]) Pulse Oximetry Assessment Oxygen Saturation (92-100) 97 Oxygen Flow Rate (L/min) 2 Oxygen Delivery Method Nasal Cannula Equipment Usage Equipment in Use Continuous SpO2 Machine # 6 Intake & Output 11/24/16 11/25/16 11/26/16 06:59 06:59 06:59 Intake Total 510 714 Output Total 1500 2200 Balance -990 -1486 Weight 60.2 kg 60.5 kg Additional comments: GENERAL: Appears well, no acute distress, speaks in full sentences HEENT: Normocephalic, no scleral icterus, conjunctiva clear, EOEM intact, PERRLA , moist mucous membranes NECK: trachea midline, no thyromegally RESPIRATORY: generally improved air movement, but persistent diminished breath sounds at both bases CARDIAC: Regular rate and rhythm, no murmur/nate/rub ABDOMEN: Soft, no distension, no tenderness, no guarding, normal bowel sounds, negative Moreland sign RECTAL: deferred : deferred EXTREMITIES: 1+ Pitting edema in bilateral lower extremities MUSCULOSKELETAL: No joint swelling or deformity VASCULAR: normal peripheral pulses NEUROLOGIC: Alert, oriented to person/place/time, normal speech, cranial nerves grossly intact, 5/5 strength in all extremities, tactile sensation intact in all extremities SKIN: No rash, no wounds, no worrisome skin lesions PSYCHIATRIC: Normal mood, normal affect Results Laboratory Results: 11/24/16 03:58 11/25/16 04:45 11/25/16 04:45 Sodium 142.1 Potassium 3.7 Chloride 104 Carbon Dioxide 25 Anion Gap 13 BUN 21 H Creatinine 0.82 Est GFR ( Amer) > 60 Est GFR (Non-Af Amer) > 60 Glucose 109 Calcium 8.4 Impressions: Chest CT 11/22/16 22:57 IMPRESSION: Consolidation is present in both lower lobes, left greater than right. Moderately large left pleural effusion. Small right pleural effusion. Thoracentesis Ultrasound 11/23/16 13:02 IMPRESSION: SUCCESSFUL THORACENTESIS USING ULTRASOUND GUIDANCE. Chest X-Ray 11/25/16 06:00 IMPRESSION: No improved appearance. Persistent bilateral pleural effusions. Assessment & Plan - Diagnosis (1) Acute on chronic respiratory failure with hypoxemia Is this a current diagnosis for this admission?: YesPlan: Continue current oxygen supplementation. He uses home oxygen. 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 This acute decompensation was likely due to reducing the Lasix dose. He currently feels better after thoracentesis 2 days ago. I's are less than O' s. We'll continue current Rx. Check follow-up chest x-ray. (3) COPD (chronic obstructive pulmonary disease) Is this a current diagnosis for this admission?: YesPlan: His COPD and bronchiectasis are followed by Dr. Espinal (4) Bronchiectasis Is this a current diagnosis for this admission?: Yes (5) Pleural effusion Is this a current diagnosis for this admission?: YesPlan: He has chronic/persistent/recurring pleural effusions. He is status post a recent thoracentesis of 600 mL clear yellow fluid. This helped symptomatically. (6) Hypertension Is this a current diagnosis for this admission?: Yes (7) Atrial fibrillation Qualifiers: Atrial fibrillation type: chronic Qualified Code(s): I48.2 - Chronic atrial fibrillation Is this a current diagnosis for this admission?: YesPlan: Rate controlled on current Rx. (8) Remote history of stroke Is this a current diagnosis for this admission?: YesPlan: Continue aspirin and statin. (9) Diabetes mellitus Is this a current diagnosis for this admission?: YesPlan: Continue current monitoring and Rx. (10) Urinary incontinence Is this a current diagnosis for this admission?: Yes (11) Pneumonia Qualifiers: Pneumonia type: due to unspecified organism Laterality: bilateral Lung location: unspecified part of lung Qualified Code(s): J18.9 - Pneumonia, unspecified organism Is this a current diagnosis for this admission?: YesPlan: Recent CT chest showed bilateral airspace disease. The patient has been afebrile and has a normal white blood count. He continues on Levaquin which was started in the emergency department. Blood cultures 2 from 11/22/2016 are negative so far. Pleural fluid culture of 11/23/2016 is negative so far. Today 's follow-up chest x-ray is noted. We'll check follow-up labs in the morning.
[2016-11-25] MEDS: ATORVASTATIN CALCIUM 20 MG TABLET PO SCH (22:57)
[2016-11-26] MEDS: HEPARIN SOD (PORCINE) 5,000 UNIT/ML 1 ML SYRINGE SUBCUT SCH ×3 (06:43→23:35)
[2016-11-26] MEDS: LANSOPRAZOLE 30 MG TAB.RAP.DR PO SCH (06:43)
[2016-11-26 07:46] LABS: ABSOLUTE EOSINOPHILS # (AUTO) 0.5 10^3/uL (0.0-0.6); ABSOLUTE LYMPHOCYTES (AUTO) 1.2 10^3/uL (0.5-4.7); ABSOLUTE MONOCYTES (AUTO) 0.8 10^3/uL (0.1-1.4); BASOPHILS % (AUTO) 0.6 % (0-2); EOSINOPHILS % (AUTO) 6.5 % (0-6); HEMATOCRIT 36.2 % (37.9-51.0); HGB HCT DIFFERENCE -0.2; LYMPHOCYTES % (AUTO) 15.7 % (13-45); MEAN CORPUSCULAR HEMOGLOBIN 29.4 pg (27.0-33.4); MEAN CORPUSCULAR VOLUME 89 fl (80-97); MONOCYTES % (AUTO) 10.6 % (3-13); RED BLOOD COUNT 4.07 10^6/uL (4.35-5.55); RED CELL DISTRIBUTION WIDTH 15.3 % (11.5-14.0); SEGMENTED NEUTROPHILS % (AUTO) 66.6 % (42-78); WHITE BLOOD COUNT 7.5 10^3/uL (4.0-10.5)
[2016-11-26 08:05] LABS: ANION GAP 12 (5-19); BLOOD UREA NITROGEN 18 mg/dL (7-20); CALCIUM 8.2 mg/dL (8.4-10.2); CARBON DIOXIDE 28 mmol/L (22-30); CHLORIDE 102 mmol/L (98-107); CREATININE RESULT 0.83 mg/dL (0.52-1.25); GLUCOSE 95 mg/dL (75-110); POTASSIUM 3.7 mmol/L (3.6-5.0); SODIUM 141.6 mmol/L (137-145)
--- NOTE | 2016-11-26 08:20 | PDOC PROGRESS REPORT ---
Subjective Progress Note for:: 11/26/16 Subjective:: The patient states to feel much better. is at the bedside. He denies any shortness of breath or fever. He denies any cough. He is complaining of some neck discomfort. He has not been out of bed since 3 days ago. Discussed the need to get out of bed into the chair and doing physical therapy. Physical Exam Vital Signs: Temp Pulse Resp BP Pulse Ox 97.4 F 60 18 125/62 97 11/26/16 07:24 11/26/16 07:24 11/26/16 07:24 11/26/16 07:24 11/26/16 07:49 Pulse Oximeter Continuous Start: 11/23/16 15: 49 Freq: RTQ4 Status: Active Document 11/26/16 07:49 JDR (Rec: 11/26/16 07:50 [email or web address] [email or web address]) Pulse Oximetry Assessment Oxygen Saturation (92-100) 97 Oxygen Flow Rate (L/min) 2 Oxygen Delivery Method Nasal Cannula Equipment Usage Equipment in Use Continuous SpO2 Machine # 6 Intake & Output 11/25/16 11/26/16 11/27/16 06:59 06:59 06:59 Intake Total 714 2305 Output Total 2200 2750 Balance -1486 -445 Weight 60.5 kg 55.4 kg General appearance: PRESENT: mild distress Head exam: PRESENT: atraumatic Eye exam: PRESENT: conjunctiva pink Neck exam: PRESENT: carotid bruit Respiratory exam: PRESENT: crackles Cardiovascular exam: PRESENT: bradycardia, irregular rhythm Pulses: PRESENT: +1 pedal pulses bilateral GI/Abdominal exam: PRESENT: normal bowel sounds, soft Extremities exam: PRESENT: other. ABSENT: pedal edema Musculoskeletal exam: PRESENT: other Neurological exam: PRESENT: awake Results Laboratory Results: 11/26/16 07:29 11/26/16 07:29 11/23/16 11/26/16 11/26/16 15:15 07:29 07:29 WBC 7.5 RBC 4.07 L Hgb 12.0 L Hct 36.2 L MCV 89 MCH 29.4 MCHC 33.0 RDW 15.3 H Plt Count 235 Seg Neutrophils % 66.6 Lymphocytes % 15.7 Monocytes % 10.6 Eosinophils % 6.5 H Basophils % 0.6 Absolute Neutrophils 5.0 Absolute Lymphocytes 1.2 Absolute Monocytes 0.8 Absolute Eosinophils 0.5 Absolute Basophils 0.0 Sodium 141.6 Potassium 3.7 Chloride 102 Carbon Dioxide 28 Anion Gap 12 BUN 18 Creatinine 0.83 Est GFR ( Amer) > 60 Est GFR (Non-Af Amer) > 60 Glucose 95 Calcium 8.2 L Fluid LDH 67 Impressions: Chest CT 11/22/16 22:57 IMPRESSION: Consolidation is present in both lower lobes, left greater than right. Moderately large left pleural effusion. Small right pleural effusion. Thoracentesis Ultrasound 11/23/16 13:02 IMPRESSION: SUCCESSFUL THORACENTESIS USING ULTRASOUND GUIDANCE. Chest X-Ray 11/25/16 06:00 IMPRESSION: No improved appearance. Persistent bilateral pleural effusions. Assessment & Plan - Diagnosis (1) Acute on chronic respiratory failure with hypoxemia Is this a current diagnosis for this admission?: YesPlan: Improved with diureses and paracenteses (2) Atrial fibrillation Qualifiers: Atrial fibrillation type: chronic Qualified Code(s): I48.2 - Chronic atrial fibrillation Is this a current diagnosis for this admission?: YesPlan: Controlled with medications (3) Heart failure, diastolic, with acute decompensation Is this a current diagnosis for this admission?: YesPlan: Much improved with diureses (4) Pleural effusion Is this a current diagnosis for this admission?: YesPlan: Improved with paracentesis (5) Pneumonia Qualifiers: Pneumonia type: due to unspecified organism Laterality: bilateral Lung location: unspecified part of lung Qualified Code(s): J18.9 - Pneumonia, unspecified organism Is this a current diagnosis for this admission?: YesPlan: Presently on antibiotics (6) DNR (do not resuscitate) Is this a current diagnosis for this admission?: Yes (7) Remote history of stroke Is this a current diagnosis for this admission?: Yes
[2016-11-26] MEDS: IRON POLYSACCHARIDES COMPLEX 150 MG CAPSULE PO SCH (09:49)
[2016-11-26] MEDS: LISINOPRIL 10 MG TABLET PO SCH (09:50)
[2016-11-26] MEDS: ASPIRIN 81 MG TABLET, ENT COATED PO SCH (09:50)
[2016-11-26] MEDS: METOPROLOL SUCCINATE 25 MG TAB.SR.24H PO SCH (09:50)
[2016-11-26] MEDS: POTASSIUM CHLORIDE 10 MEQ TABLET.SA PO SCH ×2 (09:50→23:35)
[2016-11-26] MEDS: NITROGLYCERIN 5 MG (0.2 MG/HR) PATCH.TD24 TOP SCH (09:51)
[2016-11-26] MEDS: FUROSEMIDE 40 MG TABLET PO SCH ×2 (09:51→17:24)
[2016-11-26] MEDS: LEVOFLOXACIN 500 MG TABLET PO SCH (09:51)
--- NOTE | 2016-11-26 16:40 | PDOC PROGRESS REPORT ---
Subjective Progress Note for:: 11/26/16 Subjective:: awake feels better Physical Exam Vital Signs: Temp Pulse Resp BP Pulse Ox 97.4 F 76 18 115/73 97 11/26/16 11:53 11/26/16 11:53 11/26/16 11:53 11/26/16 11:53 11/26/16 11:55 Pulse Oximeter Continuous Start: 11/23/16 15: 49 Freq: RTQ4 Status: Active Document 11/26/16 11:55 [facility] [place] (Rec: 11/26/16 11:57 NSC [email or web address]) Pulse Oximetry Assessment Oxygen Saturation (92-100) 97 Oxygen Flow Rate (L/min) 2 Oxygen Delivery Method Nasal Cannula Fraction of Inspired Oxygen (FIO2) 28 Equipment Usage Equipment in Use Continuous SpO2 Machine # N 6 Additional RT Notes Other moved from index finger to ring finger..left hand Intake & Output 11/25/16 11/26/16 11/27/16 06:59 06:59 06:59 Intake Total 714 2305 Output Total 2200 2750 Balance -1486 -445 Weight 60.5 kg 55.4 kg General appearance: PRESENT: no acute distress, cooperative, disheveled, thin Head exam: PRESENT: atraumatic, normocephalic Eye exam: PRESENT: conjunctiva pale, EOMI Mouth exam: PRESENT: dry mucosa, neck supple Respiratory exam: PRESENT: decreased breath sounds, prolonged expiratory phas, rhonchi, symmetrical, unlabored Cardiovascular exam: PRESENT: RRR, +S1, +S2 Pulses: PRESENT: normal radial pulses GI/Abdominal exam: PRESENT: normal bowel sounds, soft. ABSENT: distended, guarding, mass, organolmegaly, rebound, tenderness Rectal exam: PRESENT: deferred Gentrourinary exam: PRESENT: indwelling catheter Musculoskeletal exam: PRESENT: normal inspection Neurological exam: PRESENT: awake Skin exam: PRESENT: dry, warm Results Laboratory Results: 11/26/16 07:29 11/26/16 07:29 11/23/16 11/26/16 11/26/16 15:15 07:29 07:29 WBC 7.5 RBC 4.07 L Hgb 12.0 L Hct 36.2 L MCV 89 MCH 29.4 MCHC 33.0 RDW 15.3 H Plt Count 235 Seg Neutrophils % 66.6 Lymphocytes % 15.7 Monocytes % 10.6 Eosinophils % 6.5 H Basophils % 0.6 Absolute Neutrophils 5.0 Absolute Lymphocytes 1.2 Absolute Monocytes 0.8 Absolute Eosinophils 0.5 Absolute Basophils 0.0 Sodium 141.6 Potassium 3.7 Chloride 102 Carbon Dioxide 28 Anion Gap 12 BUN 18 Creatinine 0.83 Est GFR ( Amer) > 60 Est GFR (Non-Af Amer) > 60 Glucose 95 Calcium 8.2 L Fluid LDH 67 Impressions: Chest CT 11/22/16 22:57 IMPRESSION: Consolidation is present in both lower lobes, left greater than right. Moderately large left pleural effusion. Small right pleural effusion. Thoracentesis Ultrasound 11/23/16 13:02 IMPRESSION: SUCCESSFUL THORACENTESIS USING ULTRASOUND GUIDANCE. Chest X-Ray 11/25/16 06:00 IMPRESSION: No improved appearance. Persistent bilateral pleural effusions. Assessment & Plan - Diagnosis (1) Acute on chronic respiratory failure with hypoxemia Is this a current diagnosis for this admission?: Yes (2) Atrial fibrillation Qualifiers: Atrial fibrillation type: chronic Qualified Code(s): I48.2 - Chronic atrial fibrillation Is this a current diagnosis for this admission?: Yes (3) COPD (chronic obstructive pulmonary disease) Is this a current diagnosis for this admission?: Yes (4) DNR (do not resuscitate) Is this a current diagnosis for this admission?: Yes (5) Pleural effusion Is this a current diagnosis for this admission?: YesPlan: clinically better radiographically unchanged ? pleuradex
[2016-11-26] MEDS: DILTIAZEM HCL 180 MG CAPSULE.CR PO SCH (17:08)
[2016-11-26] MEDS: ACETAMINOPHEN 325 MG TABLET PO PRN (17:27)
[2016-11-26] MEDS: ATORVASTATIN CALCIUM 20 MG TABLET PO SCH (23:34)
[2016-11-27] MEDS: HEPARIN SOD (PORCINE) 5,000 UNIT/ML 1 ML SYRINGE SUBCUT SCH (06:40)
[2016-11-27] MEDS: LANSOPRAZOLE 30 MG TAB.RAP.DR PO SCH (06:40)
--- NOTE | 2016-11-27 08:23 | PDOC DISCHARGE SUMMARY ---
General - Admit/Disc Date/PCP Admission Date/Primary Care Provider: 11/23/16 08:48 RANDY JEFFERY, Discharge Date: 11/27/16 - Discharge Diagnosis (1) Acute on chronic respiratory failure with hypoxemia Is this a current diagnosis for this admission?: YesSummary: Continue diuretics, antibiotics and supplemental oxygen (2) Atrial fibrillation Is this a current diagnosis for this admission?: YesSummary: Continue current medications (3) Heart failure, diastolic, with acute decompensation Is this a current diagnosis for this admission?: YesSummary: Continue low-salt/DASH diet and diuretics (4) Pleural effusion Is this a current diagnosis for this admission?: YesSummary: Repeat chest x-ray in 3-4 weeks after the thoracenteses (5) Pneumonia Is this a current diagnosis for this admission?: YesSummary: Continue antibiotics (6) DNR (do not resuscitate) Is this a current diagnosis for this admission?: Yes (7) Remote history of stroke Is this a current diagnosis for this admission?: Yes - Additional Information Resuscitation Status: Do Not Resuscitate Discharge Diet: As Tolerated, Cardiac Discharge Activity: Activity As Tolerated, Balance Activity w/Rest, Weigh Daily Home Medications: Albuterol Sulfate [Proair HFA] 2 puff IH Q4HP PRN 11/23/16 Alendronate Sodium [Fosamax "Weekly" 35 mg Tablet] 35 mg PO ENGLISH 11/23/16 Atorvastatin Calcium [Lipitor 20 mg Tablet] 20 mg PO QHS 11/23/16 Diltiazem HCl [Cartia Xt] 240 mg PO DAILY 11/23/16 Furosemide [Lasix] 40 mg PO BID 11/23/16 Iron Ps Cmplx/Vit B12/FA [Poly-Iron 150 Forte Capsule] 1 cap PO DAILY 11/23/16 Lisinopril [Prinivil 10 mg Tablet] 10 mg PO BID 11/23/16 Metoprolol Tartrate [Lopressor 25 mg Tablet] 12.5 mg PO BID 11/23/16 Nitroglycerin [Nitro-Dur 5 mg (0.2 mg/Hr) Transdermal Patch] 1 patch TOP Q12 Pantoprazole Sodium [Protonix] 40 mg PO DAILY 11/23/16 Potassium Chloride [Klor-Con 10] 10 meq PO BID 03/24/17 Levofloxacin [Levaquin 500 mg Tablet] 500 mg PO DAILY #5 tablet 11/27/16 History of Present Illness History of Present Illness: AISHWARYA MCLAUGHLIN JR is a 86 year old male Hospital Course Hospital Course: The patient did well during the hospitalization he had significant diureses with increase and Lasix. He had thoracenteses done by laborer/key man. He was seen by the cardiology no change in his medications. He had significant negative balance. His kidney function has remained stable. The medications have been switched from IV to by mouth. He tolerated low sodium diet well. He was out of bed to chair. No lower extremity swellings were noted. No shortness of breath Physical Exam Vital Signs: Temp Pulse Resp BP Pulse Ox 97.9 F 68 18 121/76 98 11/26/16 15:47 11/27/16 02:00 11/26/16 15:47 11/26/16 15:47 11/27/16 08:00 Pulse Oximeter Continuous Start: 11/23/16 15: 49 Freq: RTQ4 Status: Active Document 11/27/16 08:00 [facility] (Rec: 11/27/16 08:05 J [email or web address]) Pulse Oximetry Assessment Oxygen Saturation (92-100) 98 Oxygen Flow Rate (L/min) 2.5 Oxygen Delivery Method Nasal Cannula Equipment Usage Equipment in Use Continuous SpO2 Machine # 6 Intake & Output 11/26/16 11/27/16 11/28/16 06:59 06:59 06:59 Intake Total 2305 695 Output Total 2750 550 Balance -445 145 Weight 55.4 kg 55 kg General appearance: PRESENT: no acute distress Head exam: PRESENT: atraumatic Eye exam: PRESENT: conjunctiva pink Neck exam: ABSENT: carotid bruit Respiratory exam: PRESENT: crackles Cardiovascular exam: PRESENT: irregular rhythm Pulses: PRESENT: +1 pedal pulses bilateral GI/Abdominal exam: PRESENT: normal bowel sounds, soft Extremities exam: ABSENT: pedal edema Musculoskeletal exam: PRESENT: ambulatory Results Laboratory Results: 11/26/16 07:29 11/26/16 07:29 11/23/16 15:15 Pleural Fluid - Left Pleural Effusion Gram Stain - Final 11/23/16 15:15 Pleural Fluid - Left Pleural Effusion Body Fluid Culture - Final NO AEROBIC OR ANAEROBIC ORGANISMS RECOVERED Impressions: Chest CT 11/22/16 22:57 IMPRESSION: Consolidation is present in both lower lobes, left greater than right. Moderately large left pleural effusion. Small right pleural effusion. Thoracentesis Ultrasound 11/23/16 13:02 IMPRESSION: SUCCESSFUL THORACENTESIS USING ULTRASOUND GUIDANCE. Chest X-Ray 11/25/16 06:00 IMPRESSION: No improved appearance. Persistent bilateral pleural effusions. Plan Discharge Plan: Continue current medications. Follow up in the office in one week and when necessary
[2016-11-27 09:23] VITALS: BP 124/59
[2016-11-27] MEDS: NITROGLYCERIN 5 MG (0.2 MG/HR) PATCH.TD24 TOP SCH (10:57)
[2016-11-27] MEDS: METOPROLOL SUCCINATE 25 MG TAB.SR.24H PO SCH (10:58)
[2016-11-27] MEDS: IRON POLYSACCHARIDES COMPLEX 150 MG CAPSULE PO SCH (10:58)
[2016-11-27] MEDS: POTASSIUM CHLORIDE 10 MEQ TABLET.SA PO SCH (10:59)
[2016-11-27] MEDS: LEVOFLOXACIN 500 MG TABLET PO SCH (10:59)
[2016-11-27] MEDS: LISINOPRIL 10 MG TABLET PO SCH (10:59)
[2016-11-27] MEDS: ASPIRIN 81 MG TABLET, ENT COATED PO SCH (10:59)
[2016-11-27] MEDS: FUROSEMIDE 40 MG TABLET PO SCH (10:59)
[2016-11-27] MEDS: DILTIAZEM HCL 180 MG CAPSULE.CR PO SCH (10:59)
--- NOTE | 2016-11-27 17:28 | PDOC PROGRESS REPORT ---
Subjective Progress Note for:: 11/27/16 Subjective:: awake feels better Physical Exam Vital Signs: Temp Pulse Resp BP Pulse Ox 98.7 F 107 H 18 124/59 L 98 11/27/16 10:48 11/27/16 10:48 11/27/16 10:48 11/27/16 10:48 11/27/16 10:48 Pulse Oximeter Continuous Start: 11/23/16 15: 49 Freq: RTQ4 Status: Discharge Document 11/27/16 08:00 [facility] (Rec: 11/27/16 08:05 J [email or web address]) Pulse Oximetry Assessment Oxygen Saturation (92-100) 98 Oxygen Flow Rate (L/min) 2.5 Oxygen Delivery Method Nasal Cannula Equipment Usage Equipment in Use Continuous SpO2 Machine # 6 Intake & Output 11/26/16 11/27/16 11/28/16 06:59 06:59 06:59 Intake Total 2305 695 Output Total 2750 550 Balance -445 145 Weight 55.4 kg 55 kg General appearance: PRESENT: no acute distress, disheveled, thin, well-developed , well-nourished Head exam: PRESENT: atraumatic, normocephalic Eye exam: PRESENT: conjunctiva pale, EOMI Mouth exam: PRESENT: dry mucosa, neck supple Neck exam: ABSENT: carotid bruit, JVD, lymphadenopathy, thyromegaly Respiratory exam: PRESENT: decreased breath sounds, prolonged expiratory phas, unlabored - R SOUDS DECREASED> l Cardiovascular exam: PRESENT: irregular rhythm Pulses: PRESENT: normal radial pulses GI/Abdominal exam: PRESENT: normal bowel sounds, soft. ABSENT: distended, guarding, mass, organolmegaly, rebound, tenderness Rectal exam: PRESENT: deferred Gentrourinary exam: PRESENT: indwelling catheter Musculoskeletal exam: PRESENT: normal inspection Neurological exam: PRESENT: awake Psychiatric exam: PRESENT: normal mood Skin exam: PRESENT: dry, warm Results Laboratory Results: 11/26/16 07:29 11/26/16 07:29 11/23/16 15:15 Pleural Fluid - Left Pleural Effusion Gram Stain - Final 11/23/16 15:15 Pleural Fluid - Left Pleural Effusion Body Fluid Culture - Final NO AEROBIC OR ANAEROBIC ORGANISMS RECOVERED Impressions: Chest CT 11/22/16 22:57 IMPRESSION: Consolidation is present in both lower lobes, left greater than right. Moderately large left pleural effusion. Small right pleural effusion. Thoracentesis Ultrasound 11/23/16 13:02 IMPRESSION: SUCCESSFUL THORACENTESIS USING ULTRASOUND GUIDANCE. Chest X-Ray 11/25/16 06:00 IMPRESSION: No improved appearance. Persistent bilateral pleural effusions. Assessment & Plan - Diagnosis (1) Acute on chronic respiratory failure with hypoxemia Is this a current diagnosis for this admission?: Yes (2) Atrial fibrillation Qualifiers: Atrial fibrillation type: chronic Qualified Code(s): I48.2 - Chronic atrial fibrillation Is this a current diagnosis for this admission?: Yes (3) COPD (chronic obstructive pulmonary disease) Is this a current diagnosis for this admission?: Yes (4) DNR (do not resuscitate) Is this a current diagnosis for this admission?: Yes (5) Pleural effusion Is this a current diagnosis for this admission?: Yes
== END 2016-11-27 11:30 | disposition home health service (06) | DRG 291 ==
LOC: ER 16:15 → UNDOADMIN 11-23 04:43 → EH 11-23 04:43 → 5 11-23 12:47
PROVIDERS: ADMIT Family Medicine; ATTEND Family Medicine
PROC: 0W9B3ZX Drainage of Left Pleural Cavity, Percutaneous Approach, Diagnostic (ICD-10-PCS; principal; 2016-11-23)
PROC: BB4BZZZ Ultrasonography of Pleura (ICD-10-PCS; 2016-11-23)
PROC: 3E0F73Z Introduction of Anti-inflammatory into Respiratory Tract, Via Natural or Artificial Opening (ICD-10-PCS; 2016-11-24)
DX: I13.0 Hypertensive heart and chronic kidney disease with heart failure and stage 1 through stage 4 chronic kidney disease, or unspecified chronic kidney disease (principal); I50.33 Acute on chronic diastolic (congestive) heart failure; J96.21 Acute and chronic respiratory failure with hypoxia; J18.9 Pneumonia, unspecified organism; J91.8 Pleural effusion in other conditions classified elsewhere; E11.22 Type 2 diabetes mellitus with diabetic chronic kidney disease; I48.2 Chronic atrial fibrillation; J44.9 Chronic obstructive pulmonary disease, unspecified; N18.3 Chronic kidney disease, stage 3 (moderate); I25.10 Atherosclerotic heart disease of native coronary artery without angina pectoris; E78.5 Hyperlipidemia, unspecified; D69.6 Thrombocytopenia, unspecified; F03.90 Unspecified dementia, unspecified severity, without behavioral disturbance, psychotic disturbance, mood disturbance, and anxiety; K21.9 Gastro-esophageal reflux disease without esophagitis; N40.1 Benign prostatic hyperplasia with lower urinary tract symptoms; N39.498 Other specified urinary incontinence; E11.51 Type 2 diabetes mellitus with diabetic peripheral angiopathy without gangrene; Z87.891 Personal history of nicotine dependence; Z66 Do not resuscitate; Z86.73 Personal history of transient ischemic attack (TIA), and cerebral infarction without residual deficits; Z99.81 Dependence on supplemental oxygen; Z79.899 Other long term (current) drug therapy; Z88.8 Allergy status to other drugs, medicaments and biological substances
CPT/HCPCS: 32555; 36415; 71010; 71020; 71250; 80048; 80053; 81001; 82550; 82553; 82803; 82945; 82962; 83615; 83735; 83880; 84157; 84439; 84443; 84481; 84484; 85025; 85610; 85730; 87040; 87070; 87075; 87205; 89050; 93005; 93010; 93306; 94762; 96365; 96366; 99285; G8978-GP; G8979-GP; J1644; J1815; J1940; J1956; J3490

== ENCOUNTER → 2017-06-10 | Outpatient (CLI) | payer MEDICARE, BC ==
[2017-06-10 10:43] LABS: ABSOLUTE EOSINOPHILS # (AUTO) 0.2 10^3/uL (0.0-0.6); ABSOLUTE LYMPHOCYTES (AUTO) 1.2 10^3/uL (0.5-4.7); ABSOLUTE MONOCYTES (AUTO) 0.7 10^3/uL (0.1-1.4); ABSOLUTE NEUT (AUTO) 5.5 10^3/uL (1.7-8.2); BASOPHILS % (AUTO) 0.7 % (0-2); EOSINOPHILS % (AUTO) 2.6 % (0-6); HEMATOCRIT 35.4 % (37.9-51.0); HEMOGLOBIN 12.1 g/dL (13.5-17.0); HGB HCT DIFFERENCE 0.9; MEAN CORPUSCULAR HEMOGLOBIN 32.4 pg (27.0-33.4); MEAN CORPUSCULAR HGB CONC 34.1 g/dL (32.0-36.0); MEAN CORPUSCULAR VOLUME 95 fl (80-97); MONOCYTES % (AUTO) 9.1 % (3-13); RED BLOOD COUNT 3.72 10^6/uL (4.35-5.55); RED CELL DISTRIBUTION WIDTH 15.6 % (11.5-14.0); SEGMENTED NEUTROPHILS % (AUTO) 71.6 % (42-78); WHITE BLOOD COUNT 7.6 10^3/uL (4.0-10.5)
[2017-06-10 11:09] LABS: ALANINE AMINOTRANSFERASE 24 U/L (21-72); ALBUMIN 3.4 g/dL (3.5-5.0); ALKALINE PHOSPHATASE 90 U/L (38-126); ANION GAP 10 (5-19); ASPARTATE AMINO TRANSFERASE 14 U/L (17-59); BILIRUBIN,DIRECT 0.3 mg/dL (0.0-0.4); BILIRUBIN,TOTAL 0.7 mg/dL (0.2-1.3); BLOOD UREA NITROGEN 18 mg/dL (7-20); CALCIUM 8.6 mg/dL (8.4-10.2); CARBON DIOXIDE 32 mmol/L (22-30); CHLORIDE 104 mmol/L (98-107); CHOLESTEROL 135.27 mg/dL (0-200); Direct HDL 51 mg/dL (>40); GLUCOSE 90 mg/dL (75-110); POTASSIUM 3.4 mmol/L (3.6-5.0); SODIUM 145.8 mmol/L (137-145); TOTAL PROTEIN 6.1 g/dL (6.3-8.2); TRIGLYCERIDES 44 mg/dL (<150)
[2017-06-10 11:21] LABS: DIRECT LDL 71 mg/dL (<100)
== END ==
LOC: LAB 10:05
PROVIDERS: ATTEND Internal Medicine
DX: I10 Essential (primary) hypertension (principal); E11.9 Type 2 diabetes mellitus without complications; I25.10 Atherosclerotic heart disease of native coronary artery without angina pectoris; R53.83 Other fatigue; Z86.73 Personal history of transient ischemic attack (TIA), and cerebral infarction without residual deficits
CPT/HCPCS: 36415; 80053; 80061; 83036; 84443; 85025

== ENCOUNTER → 2017-11-12 | Outpatient (CLI) | payer MEDICARE, BC ==
[2017-11-12 16:54] LABS: ALANINE AMINOTRANSFERASE 39 U/L (21-72); ALBUMIN 3.7 g/dL (3.5-5.0); ALKALINE PHOSPHATASE 86 U/L (38-126); ANION GAP 11 (5-19); ASPARTATE AMINO TRANSFERASE 31 U/L (17-59); BILIRUBIN,DIRECT 0.5 mg/dL (0.0-0.4); BILIRUBIN,TOTAL 0.5 mg/dL (0.2-1.3); BLOOD UREA NITROGEN 26 mg/dL (7-20); CARBON DIOXIDE 27 mmol/L (22-30); CHLORIDE 107 mmol/L (98-107); GLUCOSE 104 mg/dL (75-110); POTASSIUM 3.7 mmol/L (3.6-5.0); SODIUM 145.4 mmol/L (137-145); TOTAL PROTEIN 6.4 g/dL (6.3-8.2)
== END ==
LOC: OD 14:33
PROVIDERS: ATTEND Internal Medicine
DX: E11.22 Type 2 diabetes mellitus with diabetic chronic kidney disease (principal); N18.9 Chronic kidney disease, unspecified; I50.9 Heart failure, unspecified
CPT/HCPCS: 36415; 80053; 83735

== ENCOUNTER 2018-01-10 11:28 | Inpatient (IN) | payer MEDICARE, BC ==
--- NOTE | 2018-01-10 12:00 | ER Document Report ---
ED Fall - General Chief Complaint: Fall Injury Stated Complaint: FALL/HEAD INJURY Time Seen by Provider: 01/10/18 11:56 Notes: Patient fell this morning hitting his left lateral orbit and eyebrow. was in the other room and heard him fall. He said that he was going to fall and by the time she got there he had already fallen and hit his head. She said he remained unresponsive for quite a few minutes before he began to come around. Did not have any seizure activity. Denies any neck pain. Denies any neurologic deficits. says that he used to have a lot of falls but had not done so lately, except for once at spiritism about 3 or 4 weeks ago. Ate a good breakfast this morning. Denies any chest pains. Denies any shortness of breath. He does have COPD with home oxygen at nighttime and as needed. Stop smoking 60 years ago. Not on any blood thinning medications. Does have a history of atrial fibrillation and bradycardia, but is currently not in that rhythm. TRAVEL OUTSIDE OF THE [place] IN LAST 30 DAYS: No - Related data Allergies/Adverse Reactions: cortisone Allergy (Verified 11/22/16 16:35) Past Medical History - Social History Smoking Status: Unknown if Ever Smoked Cigarette use (# per day): No Family History: Reviewed & Not Pertinent - Past Medical History Cardiac Medical History: Reports: Hx Atrial Fibrillation, Hx Congestive Heart Failure, Hx Coronary Artery Disease, Hx Hypercholesterolemia, Hx Hypertension, Hx Peripheral Vascular Disease, Other - Pacemaker Pulmonary Medical History: Reports: Hx COPD - Home oxygen dependent Neurological Medical History: Reports: Hx Cerebrovascular Accident - Once, about 15 years ago. 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 EENT: Denies eye, ear, nose or mouth or throat pain or other symptoms. CARDIOVASCULAR: Denies chest pain. RESPIRATORY: Denies cough, chest congestion, or shortness of breath. GASTROINTESTINAL: Denies abdominal pain or nausea, vomiting, or diarrhea. GENITOURINARY: Denies difficulty or painful urinating, urinary frequency, blood in urine. MUSCULOSKELETAL: Denies back or neck pain. Denies joint pain or swelling. SKIN: Denies rash or skin lesions. NEUROLOGICAL: See HPI. ALL OTHER SYSTEMS REVIEWED AND NEGATIVE. Physical Exam - Vital signs Vitals: Temp Pulse Resp BP Pulse Ox 98.0 F 77 20 128/78 H 94 01/10/18 11:41 01/10/18 11:41 01/10/18 11:41 01/10/18 11:41 01/10/18 11:41 Interpretation: Normal - Notes Notes: PHYSICAL EXAMINATION: GENERAL: Well-appearing, in no acute distress. HEAD: Atraumatic, normocephalic. Face with a laceration of the left lateral upper orbit, about 4 cm total length. Irregular margins. EYES: Pupils equal round and reactive to light, extraocular movements intact. ENT: oropharynx clear without exudates. Moist mucous membranes. NECK: Normal range of motion, supple. LUNGS: Breath sounds clear and equal bilaterally. HEART: Irregugular rate and rhythm without murmurs. ABDOMEN: Soft, nontender. No guarding or rebound. No masses. No bruits heard. BACK: No tenderness throughout entire back. EXTREMITIES: Normal range of motion without pain. NEUROLOGICAL: Normal speech. Gait not tested. says patient stood at the scene without difficulty. Normal sensory, motor, and reflex exams. Awake, alert, but not certain if patient is oriented 3 PSYCH: Normal mood, normal affect. SKIN: Warm, dry, no rashes. Course - Re-evaluation Re-evalutation: 01/10/18 15:16 Spoke with hospitalist, Dr. Granados, who will admit the patient to telemetry for observation. - Vital Signs Vital signs: Temp Pulse Resp BP Pulse Ox 98.0 F 77 15 162/83 H 95 01/10/18 11:41 01/10/18 11:41 01/10/18 15:01 01/10/18 15:01 01/10/18 15:01 - Laboratory Result Diagrams: 01/10/18 12:46 01/10/18 12:46 Laboratory results interpreted by me: 01/10/18 01/10/18 12:46 12:46 RBC 3.84 L Hgb 12.0 L Hct 35.9 L RDW 16.1 H Plt Count 130 L Carbon Dioxide 31 H BUN 22 H Total Protein 6.0 L Albumin 3.4 L - Diagnostic Test Radiology reviewed: Image reviewed, Reports reviewed - CT scan of the brain is normal. No acute findings. Radiology results interpreted by me: 01/10/18 15:00 CT of the brain shows no acute findings. No evidence of stroke. - EKG Interpretation by Me Rate: Normal Rhythm: A.Fib - With a pacemaker. [place]/QRS: LBBB Procedures - Laceration/Wound Repair Left Lateral Face Wound length (cm): 4 Wound's Depth, Shape: Into muscle, Irregular Anesthetic type: 1% Lidocaine w/epi Wound explored: Clean, No foreign body removed Wound Debrided: None Wound Repaired With: Sutures Suture Size/Type: 5:0, Ethilon Number of Sutures: 4 Layer Closure?: No Post-procedure wound care: Sterile dressing applied Post-procedure NV exam normal: Yes Discharge - Discharge Clinical Impression: Syncope, Laceration of face Condition: Stable Disposition: ADMITTED OBSERVATION Admitting Provider: Hospitalist Unit Admitted: Telemetry Referrals: RANDY JEFFERY MD [Primary Care Provider] - Follow up as needed
[2018-01-10] MEDS ORDERED: LIDOCAINE 1%/EPINEPHRINE INJ 20 ML VIAL INJ ONE (12:02)
[2018-01-10 12:33] LABS: APPEARANCE,URINE CLEAR; BILIRUBIN,URINE NEGATIVE (NEGATIVE); COLOR,URINE YELLOW; GLUCOSE, URINE NEGATIVE (NEGATIVE); KETONES,URINE NEGATIVE (NEGATIVE); LEUKOCYTE ESTERASE,URINE NEGATIVE (NEGATIVE); NITRITE,URINE NEGATIVE (NEGATIVE); PROTEIN,URINE NEGATIVE (NEGATIVE); URINE SPECIFIC GRAVITY 1.009; UROBILINOGEN,URINE NEGATIVE mg/dL (<2.0)
[2018-01-10 12:57] LABS: ABSOLUTE EOSINOPHILS # (AUTO) 0.2 10^3/uL (0.0-0.6); ABSOLUTE LYMPHOCYTES (AUTO) 0.9 10^3/uL (0.5-4.7); ABSOLUTE MONOCYTES (AUTO) 0.6 10^3/uL (0.1-1.4); ABSOLUTE NEUT (AUTO) 4.6 10^3/uL (1.7-8.2); BASOPHILS % (AUTO) 0.7 % (0-2); EOSINOPHILS % (AUTO) 3.4 % (0-6); HEMATOCRIT 35.9 % (37.9-51.0); LYMPHOCYTES % (AUTO) 14.7 % (13-45); MEAN CORPUSCULAR HEMOGLOBIN 31.3 pg (27.0-33.4); MEAN CORPUSCULAR HGB CONC 33.5 g/dL (32.0-36.0); MEAN CORPUSCULAR VOLUME 94 fl (80-97); MONOCYTES % (AUTO) 9.1 % (3-13); PLATELET COUNT 130 10^3/uL (150-450); RED BLOOD COUNT 3.84 10^6/uL (4.35-5.55); RED CELL DISTRIBUTION WIDTH 16.1 % (11.5-14.0); SEGMENTED NEUTROPHILS % (AUTO) 72.1 % (42-78); TOTAL CELLS COUNTED % (AUTO) 100 %; WHITE BLOOD COUNT 6.3 10^3/uL (4.0-10.5)
[2018-01-10 13:18] LABS: ALANINE AMINOTRANSFERASE 44 U/L (21-72); ALBUMIN 3.4 g/dL (3.5-5.0); ALKALINE PHOSPHATASE 74 U/L (38-126); ANION GAP 10 (5-19); ASPARTATE AMINO TRANSFERASE 45 U/L (17-59); BILIRUBIN,DIRECT 0.3 mg/dL (0.0-0.4); BILIRUBIN,TOTAL 0.5 mg/dL (0.2-1.3); BLOOD UREA NITROGEN 22 mg/dL (7-20); CALCIUM 8.7 mg/dL (8.4-10.2); CARBON DIOXIDE 31 mmol/L (22-30); CHLORIDE 104 mmol/L (98-107); GLUCOSE 104 mg/dL (75-110); POTASSIUM 3.6 mmol/L (3.6-5.0); SODIUM 144.7 mmol/L (137-145)
--- NOTE | 2018-01-10 13:18 | RADIOLOGY REPORT (SQ) ---
EXAM DESCRIPTION: CT HEAD WITHOUT COMPLETED DATE/TIME: 01/10/2018 1:07 pm REASON FOR STUDY: Fell and hit left orbit this morning COMPARISON: None. TECHNIQUE: Axial images acquired through the brain without intravenous contrast. Images reviewed wi th bone, brain and subdural windows. Additional sagittal and coronal reconstructions were generated. Images stored on PACS. All CT scanners at this facility use dose modulation, iterative reconstruction, and/or weight based d osing when appropriate to reduce radiation dose to as low as reasonably achievable (ALARA). [facility]: Dose Right [facility]: CareDose [facility]: Dose Right [facility]: Teradose 4D [facility]: Smart S[employer] RADIATION DOSE: mGy. LIMITATIONS: None. FINDINGS: VENTRICLES: Prominent. CEREBRUM: No masses. No hemorrhage. No midline shift. Old left occipital infarct. Areas of low de nsity in the white matter most likely due to chronic micro-vascular ischemic change. No evidence for acute infarction. CEREBELLUM: No masses. No hemorrhage. No alteration of density. No evidence for acute infarction. EXTRAAXIAL SPACES: Age-related involutional change. No fluid collections. No masses. ORBITS AND GLOBE: No intra- or extraconal masses. Normal contour of globe without masses. CALVARIUM: No fracture. PARANASAL SINUSES: No fluid or mucosal thickening. SOFT TISSUES: No mass or hematoma. OTHER: No other significant finding. IMPRESSION: CHRONIC CHANGES OF ATROPHY AND MICROVASCULAR ISCHEMIA. NO ACUTE PROCESS. EVIDENCE OF ACUTE STROKE: NO. TECHNICAL DOCUMENTATION: JOB ID: [id number] Quality ID # [id number]: Final reports with documentation of one or more dose reduction techniques (e.g., Au tomated exposure control, adjustment of the mA and/or kV according to patient size, use of iterative reconstruction technique) 2010 [employer]- All Rights Reserved Reading location - IP/workstation name: Unknown
--- NOTE | 2018-01-10 13:42 | EKG REPORT ---
SEVERITY:- ABNORMAL ECG - ARTIFACTS ATRIAL FIBRILLATION, V-RATE 57-90 PAIRED VENTRICULAR PREMATURE COMPLEXES LEFT BUNDLE BRANCH BLOCK : Confirmed by: Ed Vasquez MD 10-Jan-2018 13:42:04
[2018-01-10] MEDS ORDERED: IPRATROPIUM/ALBUTEROL 0.5-2.5 MG/3 ML AMPUL NEB PRN (16:05)
[2018-01-10] MEDS ORDERED: ACETAMINOPHEN 325 MG TABLET PO PRN (16:05)
[2018-01-10] MEDS ORDERED: MAGNESIUM HYDROXIDE SUSP 30 ML UDCUP PO PRN (16:12)
[2018-01-10] MEDS ORDERED: ONDANSETRON HCL INJ/PF 4 MG/2 ML SDV IV PRN (16:12)
[2018-01-10] MEDS ORDERED: MAG HYDROX/AL HYDROX/SIMETH SUSP 30 ML UDCUP PO PRN (16:12)
[2018-01-10] MEDS: NORMAL SALINE 1000 ML 1,000 ML IV PRN (16:29)
--- NOTE | 2018-01-10 16:36 | PDOC H&P ---
History of Present Illness Admission Date/PCP: 01/10/18 15:30 RANDY JEFFERY, Patient complains of: Fall with loss of consciousness History of Present Illness: AISHWARYA MCLAUGHLIN JR is a 87 year old male with a past medical history of CHF, CVA, dementia, chronic kidney disease stage III, diet-controlled diabetes mellitus, hypertension, hyperlipidemia, atrial fibrillation, COPD who is home O2 dependent. The patient reported to the emergency department today after a fall sustaining a facial laceration to his left orbit and report of loss of consciousness for approximately 2-3 minutes per . The states that the patient was not wearing his oxygen when he began ambulating to the bathroom. She states that he yelled out "I am falling." She reports loss of consciousness for approximately 2-3 minutes, the patient became alert while she was on phone with EMS. She denies evidence of seizure activity; no incontinence , tongue biting, or muscle movements during LOC. She reports that he is now at his baseline mentation. The patient states that he can remember the fall but that everything is blurry leading up to his arrival in the emergency department. Evaluation in the emergency department reveals essentially normal laboratory workup, benign head CT which is negative for intracranial hemorrhage or evidence of acute CVA, and an EKG demonstrating atrial fibrillation with a left bundle branch block which is unchanged from previously. He is referred to the hospitalist service for observational admission. Past Medical History Cardiac Medical History: Reports: Atrial Fibrillation, Congestive Heart Failure , Coronary Artery Disease, Hyperlipidema, Hypertension, Peripheral Vascular Disease Pulmonary Medical History: Reports: Chronic Obstructive Pulmonary Disease (COPD ) - Home oxygen dependent, Respiratory Failure - Chronic; home O2 dependent EENT Medical History: Reports: None Neurological Medical History: Reports: None Endocrine Medical History: Reports: Diabetes Mellitus Type 2 - Diet controlled Renal/ Medical History: Reports: Chronic Kidney Disease Malignancy Medical History: Reports: None GI Medical History: Reports: None, Gastroesophageal Reflux Disease Musculoskeltal Medical History: Reports: None Skin Medical History: Reports: None Psychiatric Medical History: Reports: Dementia Traumatic Medical History: Reports: None Hematology: Reports: None Infectious Medical History: Reports: None Past Surgical History Past Surgical History: Reports: Appendectomy, Herniorrhaphy, Other - Prostate surgery, Implantable bladder stimulator Social History Information Source: Patient, Relative, Emergency Med Personnel Lives with: Spouse/Significant other Smoking Status: Former Smoker Number of Years Smokin Last Time Smoked: 50 years ago Frequency of Alcohol Use: None Hx Recreational Drug Use: No Drugs: None Hx Prescription Drug Abuse: No - Advance Directive Resuscitation Status: Do Not Resuscitate Surrogate healthcare decision maker:: The patient's , Kelley Carter, Family History Family History: Reviewed & Not Pertinent Parental Family History Reviewed: Yes Children Family History Reviewed: Yes Sibling(s) Family History Reviewed.: Yes Medication/Allergy Home Medications: Albuterol Sulfate [Proair HFA] 2 puff IH Q4HP PRN 11/23/16 Alendronate Sodium [Fosamax "Weekly" 35 mg Tablet] 35 mg PO ENGLISH 11/23/16 Atorvastatin Calcium [Lipitor 20 mg Tablet] 20 mg PO QHS 11/23/16 Diltiazem HCl [Cartia Xt] 240 mg PO DAILY 11/23/16 Furosemide [Lasix] 40 mg PO BID 11/23/16 Iron Ps Complex/B12/Folic Acid [Poly-Iron 150 Forte Capsule] 1 cap PO DAILY Lisinopril [Prinivil 10 mg Tablet] 10 mg PO BID 11/23/16 Metoprolol Tartrate [Lopressor 25 mg Tablet] 12.5 mg PO BID 11/23/16 Nitroglycerin [Nitro-Dur 5 mg (0.2 mg/Hr) Transdermal Patch] 1 patch TOP Q12 Pantoprazole Sodium [Protonix] 40 mg PO DAILY 11/23/16 Potassium Chloride [Klor-Con 10] 10 meq PO BID 11/23/16 Levofloxacin [Levaquin 500 mg Tablet] 500 mg PO DAILY #5 tablet 11/27/16 Allergies/Adverse Reactions: cortisone Allergy (Verified 11/22/16 16:35) Review of Systems Constitutional: PRESENT: weakness. ABSENT: chills, fever(s), headache(s), weight gain, weight loss Eyes: ABSENT: visual disturbances Ears: ABSENT: hearing changes Nose, Mouth, and Throat: ABSENT: headache(s), vertigo Cardiovascular: ABSENT: chest pain, dyspnea on exertion, edema, orthropnea, palpitations Respiratory: ABSENT: cough, dyspnea, hemoptysis Gastrointestinal: ABSENT: abdominal pain, constipation, diarrhea, hematemesis, hematochezia, nausea, vomiting Genitourinary: ABSENT: dysuria, hematuria Musculoskeletal: PRESENT: muscle weakness - generalized. ABSENT: joint swelling Integumentary: ABSENT: rash, wounds Neurological: PRESENT: other - fall resulting in LOC. ABSENT: abnormal gait, abnormal speech, confusion, dizziness, focal weakness, syncope Psychiatric: ABSENT: anxiety, depression, homidical ideation, suicidal ideation Endocrine: ABSENT: cold intolerance, heat intolerance, polydipsia, polyuria Hematologic/Lymphatic: ABSENT: easy bleeding, easy bruising Physical Exam Vital Signs: Temp Pulse Resp BP Pulse Ox 98.0 F 77 15 162/83 H 95 01/10/18 11:41 01/10/18 11:41 01/10/18 15:01 01/10/18 15:01 01/10/18 15:01 General appearance: PRESENT: no acute distress, cooperative, hard of hearing, well-developed, other - Cachectic Head exam: PRESENT: normocephalic, other - Facial laceration to the left lateral orbit with ecchymosis and abrasion of the left lower orbit Eye exam: PRESENT: conjunctiva pink, EOMI, PERRLA. ABSENT: scleral icterus Ear exam: PRESENT: normal external ear exam Mouth exam: PRESENT: moist, tongue midline Neck exam: ABSENT: carotid bruit, JVD, lymphadenopathy, thyromegaly Respiratory exam: PRESENT: clear to auscultation roland, symmetrical, unlabored - Although I do not know only ordered some. ABSENT: rales, rhonchi, wheezes Cardiovascular exam: PRESENT: irregular rhythm, systolic murmur. ABSENT: diastolic murmur, rubs Pulses: PRESENT: normal dorsalis pedis pul Vascular exam: PRESENT: normal capillary refill GI/Abdominal exam: PRESENT: normal bowel sounds, soft. ABSENT: distended, guarding, mass, organolmegaly, rebound, tenderness Rectal exam: PRESENT: deferred Extremities exam: PRESENT: full ROM. ABSENT: calf tenderness, clubbing, pedal edema Neurological exam: PRESENT: alert, awake, oriented to person, oriented to place , oriented to situation, CN II-XII grossly intact. ABSENT: oriented to time, motor sensory deficit Psychiatric exam: PRESENT: appropriate affect, normal mood. ABSENT: homicidal ideation, suicidal ideation Skin exam: PRESENT: dry, intact, warm. ABSENT: cyanosis, rash Results Impressions: Head CT 01/10/18 11:58 IMPRESSION: CHRONIC CHANGES OF ATROPHY AND MICROVASCULAR ISCHEMIA. NO ACUTE PROCESS. EVIDENCE OF ACUTE STROKE: NO. Assessment & Plan - Diagnosis (1) Fall Qualifiers: Encounter type: initial encounter Qualified Code(s): W19.XXXA - Unspecified fall, initial encounter Is this a current diagnosis for this admission?: Yes Plan: The patient presented to the emergency department for a fall from standing resulting in loss of consciousness for less than 5 minutes. No seizure-like activity noted. At the time, the patient was not utilizing his home O2. Upon my entering the room, I found the patient to be hypoxic (SpO2 86%) on room air and at rest. Head CT revealed chronic changes of atrophy and microvascular ischemia. No acute processes. EKG demonstrates atrial fibrillation with left bundle branch block that is unchanged from previously. Laceration to the left lateral orbit has been sutured by the ED provider. He is admitted to the medical floor on continuous cardiac telemetry. Supplemental oxygen is required to maintain oxygen saturations greater than 90% We will obtain orthostatics every shift. Gentle IV fluids. PT/OT evaluation. Fall precautions. (2) Concussion with loss of consciousness <= 30 min Qualifiers: Encounter type: initial encounter Qualified Code(s): S06.0X1A - Concussion with loss of consciousness of 30 minutes or less, initial encounter Is this a current diagnosis for this admission?: Yes Plan: As above. (3) Laceration of face Qualifiers: Encounter type: initial encounter Qualified Code(s): S01.81XA - Laceration without foreign body of other part of head, initial encounter Is this a current diagnosis for this admission?: Yes Plan: Secondary to #1. Tylenol for pain. Triple antibiotic ointment and clean dry dressing daily and as needed to facial laceration. (4) Atrial fibrillation Qualifiers: Atrial fibrillation type: chronic Qualified Code(s): I48.2 - Chronic atrial fibrillation Is this a current diagnosis for this admission?: Yes Plan: The patient is noted to have an irregularly irregular rhythm; A. fib with a left bundle branch block per EKG. By telemetry the patient's varies rapidly between 70 and 90. We will resume his home medications; metoprolol 12.5 mg BID and Cartia Xt 240 mg daily. The patient's states that he does not take aspirin, Plavix, or is chronically anticoagulated secondary to falls. (5) COPD (chronic obstructive pulmonary disease) Is this a current diagnosis for this admission?: Yes Plan: Stable and without exacerbation at this time. As needed nebulizer treatments are available as needed. (6) Chronic respiratory failure Qualifiers: Respiratory failure complication: hypoxia Qualified Code(s): J96.11 - Chronic respiratory failure with hypoxia Is this a current diagnosis for this admission?: Yes Plan: Stable; the patient has chronic respiratory failure secondary to COPD and CHF; home O2 dependent at 2 L/min. We will continue supplemental oxygen as needed to maintain oxygen saturations. Nebulizer treatments available as needed. (7) Hypertension Qualifiers: Hypertension type: essential hypertension Qualified Code(s): I10 - Essential (primary) hypertension Is this a current diagnosis for this admission?: Yes Plan: We will continue the patient's home medications; lisinopril 10 mg daily, metoprolol 12.5 milligrams twice daily, diltiazem SR 240 mg daily. Will hold lasix for now. (8) DNR (do not resuscitate) Is this a current diagnosis for this admission?: Yes - Time Time Spent: 50 to 70 Minutes Medications reviewed and adjusted accordingly: Yes Anticipated discharge: Home Within: within 24 hours
[2018-01-10] MEDS: METOPROLOL TARTRATE 25 MG TABLET PO SCH (20:03)
[2018-01-10] MEDS: LISINOPRIL 10 MG TABLET PO SCH (20:04)
[2018-01-10] MEDS: HEPARIN SOD (PORCINE) 5,000 UNIT/ML 1 ML SYRINGE SUBCUT SCH (21:26)
[2018-01-10] MEDS: ATORVASTATIN CALCIUM 20 MG TABLET PO SCH (21:26)
[2018-01-11] MEDS: LISINOPRIL 10 MG TABLET PO SCH (05:37)
[2018-01-11] MEDS: HEPARIN SOD (PORCINE) 5,000 UNIT/ML 1 ML SYRINGE SUBCUT SCH ×3 (05:37→22:42)
[2018-01-11] MEDS: METOPROLOL TARTRATE 25 MG TABLET PO SCH ×2 (05:38→18:09)
[2018-01-11 06:58] LABS: ABSOLUTE EOSINOPHILS # (AUTO) 0.1 10^3/uL (0.0-0.6); ABSOLUTE LYMPHOCYTES (AUTO) 1.2 10^3/uL (0.5-4.7); ABSOLUTE MONOCYTES (AUTO) 0.8 10^3/uL (0.1-1.4); ABSOLUTE NEUT (AUTO) 5.3 10^3/uL (1.7-8.2); BASOPHILS % (AUTO) 0.5 % (0-2); EOSINOPHILS % (AUTO) 1.3 % (0-6); HEMATOCRIT 36.3 % (37.9-51.0); HEMOGLOBIN 12.1 g/dL (13.5-17.0); LYMPHOCYTES % (AUTO) 16.7 % (13-45); MEAN CORPUSCULAR HEMOGLOBIN 31.4 pg (27.0-33.4); MEAN CORPUSCULAR HGB CONC 33.3 g/dL (32.0-36.0); MEAN CORPUSCULAR VOLUME 94 fl (80-97); MONOCYTES % (AUTO) 10.6 % (3-13); PLATELET COUNT 126 10^3/uL (150-450); RED BLOOD COUNT 3.85 10^6/uL (4.35-5.55); RED CELL DISTRIBUTION WIDTH 16.2 % (11.5-14.0); SEGMENTED NEUTROPHILS % (AUTO) 70.9 % (42-78); TOTAL CELLS COUNTED % (AUTO) 100 %; WHITE BLOOD COUNT 7.4 10^3/uL (4.0-10.5)
[2018-01-11 07:10] LABS: ANION GAP 11 (5-19); BLOOD UREA NITROGEN 23 mg/dL (7-20); CALCIUM 8.4 mg/dL (8.4-10.2); CARBON DIOXIDE 27 mmol/L (22-30); CHLORIDE 107 mmol/L (98-107); GLUCOSE 112 mg/dL (75-110); POTASSIUM 3.3 mmol/L (3.6-5.0); SODIUM 144.6 mmol/L (137-145)
[2018-01-11] MEDS: NORMAL SALINE 1000 ML 1,000 ML IV PRN (08:14)
[2018-01-11] MEDS ORDERED: POTASSIUM CHLORIDE 20 MEQ/15 ML UDCUP PO ONE (09:00)
[2018-01-11] MEDS: DOCUSATE SODIUM 100 MG CAPSULE PO SCH (09:24)
[2018-01-11] MEDS ORDERED: DILTIAZEM HCL 240 MG CAPSULE.CR PO SCH (10:00)
[2018-01-11] MEDS ORDERED: (PENDING PHARMACY ID) (Diltiazem Hcl [Cartia Xt] 240 MG) PO SCH (10:00)
[2018-01-11] MEDS ORDERED: NORMAL SALINE 1000 ML 1,000 ML IV PRN ×2 (11:56→12:52)
--- NOTE | 2018-01-11 13:15 | PDOC PROGRESS REPORT ---
Subjective Progress Note for:: 01/11/18 Subjective:: The patient is an 87-year-old man with a past medical history of CHF, CVA, dementia, chronic kidney disease stage III, diet-controlled diabetes mellitus, hypertension, hyperlipidemia, atrial fibrillation, COPD who is home O2 dependent and was admitted on 01/10/18 for fall resulting in LOC 2-3 minutes and left lateral orbit laceration. The patient is seen on morning rounds with his present. He is found sitting upright in the recliner. He states that he is feeling well today. He does report that he had some shortness of breath overnight but this was no worse than his baseline. He denies dizziness, headaches, chest pain, palpitations, dyspnea, abdominal pain, nausea vomiting and diarrhea. I reviewed with the patient and his physical therapy's recommendations PT/ OT services upon discharge. The patient's states that she recognizes that physical therapy will improve his mobility and thereby keep him safer from falls , however, she states that they are too busy to incorporate physical therapy services into their routine. We discussed the patient's vital signs and lab work demonstrate that he has orthostatic hypotension and mild dehydration. Also discussed the patient's arrhythmia; the patient's states that he has never been recommended to have a pacemaker in the past and she is unaware if he has had arrhythmias other than his chronic A. fib. They have no other questions or concerns at this time. Reason For Visit: FALL/LOC,AFIB Physical Exam Vital Signs: Temp Pulse Resp BP Pulse Ox 98.0 F 75 19 135/81 H 93 01/11/18 11:38 01/11/18 11:38 01/11/18 11:38 01/11/18 11:38 01/11/18 11:38 Intake & Output 01/10/18 01/11/18 01/12/18 06:59 06:59 06:59 Intake Total 1631 Output Total 325 Balance 1306 Weight 58 kg General appearance: PRESENT: no acute distress, hard of hearing, thin, well- developed Head exam: PRESENT: normocephalic. ABSENT: atraumatic - Ecchymosis to left orbit; laceration to left lateral orbit covered with 4 x 4 gauze, abrasion noted to lower eyelid and cheek. Eye exam: PRESENT: conjunctiva pink, EOMI, PERRLA. ABSENT: scleral icterus Ear exam: PRESENT: normal external ear exam Mouth exam: PRESENT: moist, tongue midline Neck exam: ABSENT: carotid bruit, JVD, lymphadenopathy, thyromegaly Respiratory exam: PRESENT: clear to auscultation roland, symmetrical, unlabored. ABSENT: rales, rhonchi, wheezes Cardiovascular exam: PRESENT: irregular rhythm, systolic murmur. ABSENT: diastolic murmur, rubs Pulses: PRESENT: normal dorsalis pedis pul Vascular exam: PRESENT: normal capillary refill GI/Abdominal exam: PRESENT: normal bowel sounds, soft. ABSENT: distended, guarding, mass, organolmegaly, rebound, tenderness Rectal exam: PRESENT: deferred Extremities exam: PRESENT: full ROM. ABSENT: calf tenderness, clubbing, pedal edema Neurological exam: PRESENT: alert, awake, oriented to person, oriented to place , oriented to situation, CN II-XII grossly intact, other - The patient is oriented to person place and situation, however, appears to be forgetful and does not fully participate in conversation.. ABSENT: oriented to time, motor sensory deficit Psychiatric exam: PRESENT: appropriate affect, normal mood. ABSENT: homicidal ideation, suicidal ideation Skin exam: PRESENT: dry, intact, warm. ABSENT: cyanosis, rash Results Laboratory Results: 01/11/18 06:23 01/11/18 06:23 01/11/18 01/11/18 06:23 06:23 WBC 7.4 RBC 3.85 L Hgb 12.1 L Hct 36.3 L MCV 94 MCH 31.4 MCHC 33.3 RDW 16.2 H Plt Count 126 L Seg Neutrophils % 70.9 Lymphocytes % 16.7 Monocytes % 10.6 Eosinophils % 1.3 Basophils % 0.5 Absolute Neutrophils 5.3 Absolute Lymphocytes 1.2 Absolute Monocytes 0.8 Absolute Eosinophils 0.1 Absolute Basophils 0.0 Sodium 144.6 Potassium 3.3 L Chloride 107 Carbon Dioxide 27 Anion Gap 11 BUN 23 H Creatinine 1.01 Est GFR ( Amer) > 60 Est GFR (Non-Af Amer) > 60 Glucose 112 H Calcium 8.4 01/10/18 01/10/18 01/11/18 16:52 22:00 10:29 Troponin I 0.012 0.038 0.051 Impressions: Head CT 01/10/18 11:58 IMPRESSION: CHRONIC CHANGES OF ATROPHY AND MICROVASCULAR ISCHEMIA. NO ACUTE PROCESS. EVIDENCE OF ACUTE STROKE: NO. Assessment & Plan - Diagnosis (1) Fall Qualifiers: Encounter type: initial encounter Qualified Code(s): W19.XXXA - Unspecified fall, initial encounter Is this a current diagnosis for this admission?: Yes Plan: The patient presented to the emergency department for a fall from standing resulting in loss of consciousness for less than 5 minutes. No seizure-like activity noted. At the time, the patient was not utilizing his home O2. Upon my entering the room, I found the patient to be hypoxic (SpO2 86%) on room air and at rest. Head CT revealed chronic changes of atrophy and microvascular ischemia. No acute processes. EKG demonstrates atrial fibrillation with left bundle branch block that is unchanged from previously. By telemetry, patient is also having frequent PVCs and 4-5 beat runs of Vtach Patient is noted to be orthostatic. He is admitted to the medical floor on continuous cardiac telemetry. Supplemental oxygen is required to maintain oxygen saturations greater than 90% Continue gentle IV fluids. Appreciate PT/OT evaluation; recommending home PT/OT at discharge which patient' s is currently refusing. Fall precautions. (2) Concussion with loss of consciousness <= 30 min Qualifiers: Encounter type: initial encounter Qualified Code(s): S06.0X1A - Concussion with loss of consciousness of 30 minutes or less, initial encounter Is this a current diagnosis for this admission?: Yes Plan: As above. (3) Laceration of face Qualifiers: Encounter type: initial encounter Qualified Code(s): S01.81XA - Laceration without foreign body of other part of head, initial encounter Is this a current diagnosis for this admission?: Yes Plan: Secondary to #1. Suture repair by ED provider. Tylenol for pain. Triple antibiotic ointment and clean dry dressing daily and as needed to facial laceration. (4) Atrial fibrillation Qualifiers: Atrial fibrillation type: chronic Qualified Code(s): I48.2 - Chronic atrial fibrillation Is this a current diagnosis for this admission?: Yes Plan: The patient is noted to have an irregularly irregular rhythm; A. fib with a left bundle branch block per EKG. By telemetry the patient's varies rapidly between 70 and 90. Underlying atrial fibrillation with frequent PVCs and 4-5 beat runs of V. tach. Continue his home medications; metoprolol 12.5 mg BID and Cartia Xt 240 mg daily. The patient's states that he does not take aspirin, Plavix, or is chronically anticoagulated secondary to falls. Will ask cardiology to evaluate and make recommendations; I am hesitant to increase his beta-mata as he is currently orthostatic. (5) COPD (chronic obstructive pulmonary disease) Is this a current diagnosis for this admission?: Yes Plan: Stable and without exacerbation at this time. As needed nebulizer treatments are available as needed. (6) Chronic respiratory failure Qualifiers: Respiratory failure complication: hypoxia Qualified Code(s): J96.11 - Chronic respiratory failure with hypoxia Is this a current diagnosis for this admission?: Yes Plan: Stable; the patient has chronic respiratory failure secondary to COPD and CHF; home O2 dependent at 2 L/min. We will continue supplemental oxygen as needed to maintain oxygen saturations. Nebulizer treatments available as needed. (7) Hypertension Qualifiers: Hypertension type: essential hypertension Qualified Code(s): I10 - Essential (primary) hypertension Is this a current diagnosis for this admission?: Yes Plan: We will continue the patient's home medications; lisinopril 10 mg daily, metoprolol 12.5 milligrams twice daily, diltiazem SR 240 mg daily. Will hold lasix for now as he is orthostatic and dehydrated. (8) Orthostatic hypotension Is this a current diagnosis for this admission?: Yes Plan: Slightly improved this morning after receiving IV fluids. Last night: Laying; Heart rate 77, blood pressure 149/64. Standing; heart rate 104, blood pressure 115/73. This morning: Laying; heart rate 75, blood pressure 135/81. Standing; heart rate 95, blood pressure 153/81. We will continue gentle IV fluids. Continue holding furosemide. Cardiology has been consulted. (9) CHF (congestive heart failure) Qualifiers: Heart failure type: combined systolic and diastolic Is this a current diagnosis for this admission?: Yes Plan: ProBNP pending. Echocardiogram (11/23/16): LVEF 40-45%, left ventricular hypertrophy, unable to assess ventricular diastolic function. Severe pulmonary hypertension. (10) Elevated troponin Is this a current diagnosis for this admission?: Yes Plan: Troponins are trending upward (<0.012--> 0.038--> 0.051). The patient denies chest pain or palpitations. We will continue to trend. Cardiology has been consulted; appreciate their recommendations. (11) DNR (do not resuscitate) Is this a current diagnosis for this admission?: Yes Plan: Given the patient's age, comorbidities, and 's refusal of home health nursing/PT/OT services due to "feeling overwhelmed by the number of medical appointments," I attempted to discuss palliative care and hospice services. The patient's immediately stopped this conversation. Strongly recommend reapproaching this topic in the near future. - Time Time Spent with patient: 25-34 minutes Medications reviewed and adjusted accordingly: Yes Anticipated discharge: Home Within: within 24 hours - Inpatient Certification Based on my medical assessment, after consideration of the patient's comorbidities, presenting symptoms, or acuity I expect that the services needed warrant INPATIENT care.: Yes I certify that my determination is in accordance with my understanding of Medicare's requirements for reasonable and necessary INPATIENT services [42 CFR 412.3e].: Yes Medical Necessity: Significant Comorbidiites Make Outpatient Treatment Too Risky , Need Close Monitoring Due to Risk of Patient Decompensation, Need For Continuous Telemetry Monitoring
--- NOTE | 2018-01-11 17:29 | PDOC CONSULTATION ---
Consultation Consult Date: 01/11/18 Attending physician:: CHRISTOPHER HAMILTON Consult reason:: Syncope, adjustment of medications History of Present Illness Admission Date/PCP: 01/10/18 15:30 RANDY JEFFERY, Patient complains of: Syncope History of Present Illness: AISHWARYA MCLAUGHLIN JR is a 87 year old male with a past medical history of CHF, CVA, dementia, chronic kidney disease stage III, diet-controlled diabetes mellitus, hypertension, hyperlipidemia, atrial fibrillation, COPD who is home O2 dependent. The patient reported to the emergency department today after a fall sustaining a facial laceration to his left orbit and report of loss of consciousness for approximately 2-3 minutes per . The states that the patient was not wearing his oxygen when he began ambulating to the bathroom. She states that he yelled out "I am falling." She reports loss of consciousness for approximately 2-3 minutes, the patient became alert while she was on phone with EMS. She denies evidence of seizure activity; no incontinence , tongue biting, or muscle movements during LOC. She reports that he is now at his baseline mentation. The patient states that he can remember the fall but that everything is blurry leading up to his arrival in the emergency department. Evaluation in the emergency department reveals essentially normal laboratory workup, benign head CT which is negative for intracranial hemorrhage or evidence of acute CVA, and an EKG demonstrating atrial fibrillation with a left bundle branch block which is unchanged from previously. He is referred to the hospitalist service for observational admission. This history obtained by the hospitalist was reviewed and confirmed. Patient claimed to me that he tripped and fell. However he was passed out for at least 2-3 minutes. Patient has sustained a cut over his left eyebrow which was sutured in the emergency room. Patient denied having any chest pain or palpitations prior to passing out. He denied any nausea vomiting etc. prior to passing out or after passing out. Past Medical History Cardiac Medical History: Reports: Atrial Fibrillation, Congestive Heart Failure , Coronary Artery Disease, Hyperlipidema, Hypertension, Peripheral Vascular Disease, Other - Pacemaker Pulmonary Medical History: Reports: Chronic Obstructive Pulmonary Disease (COPD ) - Home oxygen dependent, Respiratory Failure - Chronic; home O2 dependent EENT Medical History: Reports: None Neurological Medical History: Reports: None Endocrine Medical History: Reports: Diabetes Mellitus Type 2 - Steroid induced hyperglycemia Renal/ Medical History: Reports: Chronic Kidney Disease, End Stage Renal Disease - stage lll Malignancy Medical History: Reports: None GI Medical History: Reports: None, Gastroesophageal Reflux Disease Musculoskeltal Medical History: Reports: None Skin Medical History: Reports: None Psychiatric Medical History: Reports: Dementia Traumatic Medical History: Reports: None Hematology: Reports: None Infectious Medical History: Reports: None Past Surgical History Past Surgical History: Reports: Appendectomy, Herniorrhaphy, Other - Prostate surgery, Implantable bladder stimulator Social History Information Source: Patient Lives with: Spouse/Significant other Smoking Status: Unknown if Ever Smoked Number of Years Smokin Last Time Smoked: 50 years ago Frequency of Alcohol Use: None Hx Recreational Drug Use: No Drugs: None Hx Prescription Drug Abuse: No - Advance Directive Resuscitation Status: Do Not Resuscitate Family History Family History: Hypertension Parental Family History Reviewed: Yes Children Family History Reviewed: Yes Sibling(s) Family History Reviewed.: Yes Medication/Allergy Home Medications: Albuterol Sulfate [Proair HFA] 2 puff IH Q4HP PRN 11/23/16 Alendronate Sodium [Fosamax "Weekly" 35 mg Tablet] 35 mg PO MO 11/23/16 Atorvastatin Calcium [Lipitor 20 mg Tablet] 20 mg PO QHS 11/23/16 Furosemide [Lasix] 40 mg PO BID 11/23/16 Iron Ps Complex/B12/Folic Acid [Poly-Iron 150 Forte Capsule] 1 cap PO DAILY Lisinopril [Prinivil 10 mg Tablet] 5 mg PO BID 11/23/16 Metoprolol Tartrate [Lopressor 25 mg Tablet] 12.5 mg PO BID 11/23/16 Potassium Chloride [Klor-Con 10] 10 meq PO BID 11/23/16 Allergies/Adverse Reactions: cortisone Allergy (Verified 11/22/16 16:35) Review of Systems Review of Systems: Please see history of present illness and past medical history as wall. Constitutional: No fever or chills reported. History of generalized weakness and occasional falls. Head : No recent chronic headaches, recent head injury. Eyes: No recent eye pain, diplopia, redness, discharge, acute visual changes. Ears: No recent chronic ear pain, acute hearing loss, ear discharge. Oral cavity: No recent ulcerations, bleeding, oral cavity discomfort. Neck: No recent acute neck pain reported. Hematologic: No recent easy bruising or bleeding. Lymphatic: No recent lymph node enlargement reported. Cardiovascular system review: See history of present illness. Respiratory system review: No hemoptysis or blood clots in the lungs reported. Shortness of breath on exertion Gastrointestinal system review: Negative for any recent acute hematemesis, melena. Genitourinary system review: No recent acute or chronic hematuria, flank pain, UTI etc. reported. Skin system review: Negative for any recent abnormal bruising, no rash, no pruritus reported. Neurologic: No prior history of strokes, mini strokes, seizure disorder. Psychologic: No history of major psychosis or major depression reported. Musculoskeletal: Minor aches and pains reported. No acute joint swelling reported. Endocrine: No recent polyuria, polydipsia, recent heat or cold intolerance. Physical Exam Vital Signs: Temp Pulse Resp BP Pulse Ox 98.0 F 76 16 135/81 H 97 01/11/18 11:38 01/11/18 14:02 01/11/18 14:02 01/11/18 11:38 01/11/18 14:02 Intake & Output 01/10/18 01/11/18 01/12/18 06:59 06:59 06:59 Intake Total 1631 858 Output Total 325 Balance 1306 858 Weight 58 kg Exam: GENERAL: well-nourished and in no acute distress. Alert and oriented x3 HEAD: Atraumatic, normocephalic. Sutured wound noted left supra orbital area with mild underlying ecchymosis. EYES: Pupils equal round and reactive to light, extraocular movements intact, sclera anicteric, conjunctiva are normal. ENT: TMs normal, nares patent, oropharynx clear without exudates. Moist mucous membranes. No oral ulcerations or bleeding gums noted NECK: supple without lymphadenopathy. Trachea is central. No cervical or axillary lymphadenopathy noted. Carotids are 2+, JVD WNL LUNGS: Respiration seems nonlabored, no significant accessory muscle action noted. Mild bibasilar fine crackles noted. No wheezes rales or rhonchi noted. No significant dullness noted on percussion. CHEST: Palpation of the chest wall shows no significant chest wall tenderness. 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 ABDOMEN: Soft, no significant tenderness appreciated, normoactive bowel sounds. No guarding, no rebound. No rigidity noted . No masses appreciated. EXTREMITIES: Pedal pulses are 1-2+, no calf tenderness noted. No clubbing or cyanosis. negative pedal edema noted NEUROLOGICAL: Focused neurological exam showed no significant neurologic deficit. Normal speech, no focal weakness appreciated. PSYCH: Normal mood, normal affect. Judgment and insight within normal limits. SKIN: No significant ecchymosis, skin is noted to be warm. MUSCULOSKELETAL EXAM: No significant acute joint swelling noted. Results Laboratory Results: 01/11/18 06:23 01/11/18 06:23 01/11/18 01/11/18 06:23 06:23 WBC 7.4 RBC 3.85 L Hgb 12.1 L Hct 36.3 L MCV 94 MCH 31.4 MCHC 33.3 RDW 16.2 H Plt Count 126 L Seg Neutrophils % 70.9 Lymphocytes % 16.7 Monocytes % 10.6 Eosinophils % 1.3 Basophils % 0.5 Absolute Neutrophils 5.3 Absolute Lymphocytes 1.2 Absolute Monocytes 0.8 Absolute Eosinophils 0.1 Absolute Basophils 0.0 Sodium 144.6 Potassium 3.3 L Chloride 107 Carbon Dioxide 27 Anion Gap 11 BUN 23 H Creatinine 1.01 Est GFR ( Amer) > 60 Est GFR (Non-Af Amer) > 60 Glucose 112 H Calcium 8.4 01/10/18 01/10/18 01/11/18 16:52 22:00 10:29 Troponin I 0.012 0.038 0.051 NT-Pro-B Natriuret Pep 01/11/18 10:29 Troponin I NT-Pro-B Natriuret Pep 30607 H EKG Comments: Atrial fibrillation with left bundle branch block pattern and ventricular couplet Impressions: Head CT 01/10/18 11:58 IMPRESSION: CHRONIC CHANGES OF ATROPHY AND MICROVASCULAR ISCHEMIA. NO ACUTE PROCESS. EVIDENCE OF ACUTE STROKE: NO. Assessment & Plan - Diagnosis (1) Syncope Qualifiers: Syncope type: unspecified Qualified Code(s): R55 - Syncope and collapse Is this a current diagnosis for this admission?: Yes (2) CHF (congestive heart failure) Qualifiers: Heart failure type: combined systolic and diastolic Heart failure chronicity: chronic Qualified Code(s): I50.42 - Chronic combined systolic ( congestive) and diastolic (congestive) heart failure Is this a current diagnosis for this admission?: Yes (3) Elevated troponin Is this a current diagnosis for this admission?: Yes (4) Orthostatic hypotension Is this a current diagnosis for this admission?: Yes (5) Hypertension Qualifiers: Hypertension type: essential hypertension Qualified Code(s): I10 - Essential (primary) hypertension Is this a current diagnosis for this admission?: Yes (6) Fall Qualifiers: Encounter type: initial encounter Qualified Code(s): W19.XXXA - Unspecified fall, initial encounter Is this a current diagnosis for this admission?: Yes (7) Atrial fibrillation Qualifiers: Atrial fibrillation type: chronic Qualified Code(s): I48.2 - Chronic atrial fibrillation Is this a current diagnosis for this admission?: Yes - Notes Notes: Syncope: The cause is undetermined at this time. There could be multiple differential diagnosis. This includes cardiac arrhythmia in this patient's age group, hypotension secondary to orthostasis, seizure disorder, hypoglycemia et cetera. Both vicki and tachyarrhythmias are possible. Patient will benefit from cardiac monitoring during this admission. May need to consider outpatient cardiac monitoring using mobile cardiac monitoring analyst if clinically indicated. Recommend orthostatic blood pressure measurements and avoiding medications that can cause orthostasis. Congestive heart failure: Previous echocardiogram shows systolic and diastolic dysfunction. Optimize therapy with increasing doses of beta-mata. Will recommend switch to entresto from lisinopril. In this regard will place patient on valsartan in preparation to switch to entresto. Have reduced dose of Lasix to 40 mg p.o. daily. Elevated troponin I: Most likely related to CHF and syncope. Patient may not be a good candidate for revascularization due to advanced age and general debility but will leave this to patient primary research chemical engineer. Fall: Patient will benefit from physical therapy. Hypertension: Recommend liberal control. Atrial fibrillation: Patient describes history of chronic atrial fibrillation. However she is not on chronic anticoagulation because of contraindications. Patient claims that this was stopped by his research chemical engineer and possibly by his stud beef cattle farmer. At this time will leave patient off chronic anticoagulation until it applications developer and his primary care research chemical engineer take over the care. - Time Time Spent: 30 to 50 Minutes - CODE STATUS : was discussed, patient remains DO NOT RESUSCITATE. Surrogate decision-maker patient's . Multiple medical problems were addressed More than 50% of the time spent coordinating care, discussing management plans with involved caregivers. Management plans discussed with involved personnels. Medical decision making was of moderate to high complexity, patient's has multiple comorbidities.. Medications reviewed and adjusted accordingly: Yes
[2018-01-11] MEDS ORDERED: VALSARTAN 40 MG TABLET PO SCH (18:01)
[2018-01-11] MEDS: ATORVASTATIN CALCIUM 20 MG TABLET PO SCH (21:04)
[2018-01-11] MEDS ORDERED: VALSARTAN 40 MG TABLET ONE (21:09)
[2018-01-12] MEDS: HEPARIN SOD (PORCINE) 5,000 UNIT/ML 1 ML SYRINGE SUBCUT SCH ×3 (05:46→21:28)
[2018-01-12 06:49] LABS: ANION GAP 11 (5-19); BLOOD UREA NITROGEN 21 mg/dL (7-20); CALCIUM 8.4 mg/dL (8.4-10.2); CARBON DIOXIDE 26 mmol/L (22-30); CHLORIDE 111 mmol/L (98-107); GLUCOSE 103 mg/dL (75-110); POTASSIUM 3.4 mmol/L (3.6-5.0); SODIUM 147.5 mmol/L (137-145)
[2018-01-12 07:38] LABS: HEMATOCRIT 33.8 % (37.9-51.0); HEMOGLOBIN 11.2 g/dL (13.5-17.0); MEAN CORPUSCULAR HEMOGLOBIN 31.4 pg (27.0-33.4); MEAN CORPUSCULAR HGB CONC 33.2 g/dL (32.0-36.0); MEAN CORPUSCULAR VOLUME 95 fl (80-97); PLATELET COUNT 111 10^3/uL (150-450); RED BLOOD COUNT 3.56 10^6/uL (4.35-5.55); RED CELL DISTRIBUTION WIDTH 16.4 % (11.5-14.0); WHITE BLOOD COUNT 10.6 10^3/uL (4.0-10.5)
[2018-01-12] MEDS: DOCUSATE SODIUM 100 MG CAPSULE PO SCH (11:11)
[2018-01-12] MEDS: FUROSEMIDE 40 MG TABLET PO SCH (11:11)
[2018-01-12] MEDS: METOPROLOL SUCCINATE 25 MG TAB.SR.24H PO SCH ×2 (11:12→21:28)
--- NOTE | 2018-01-12 13:34 | PDOC PROGRESS REPORT ---
Subjective Progress Note for:: 01/12/18 Subjective:: The patient is an 87-year-old man with a past medical history of CHF, CVA, dementia, chronic kidney disease stage III, diet-controlled diabetes mellitus, hypertension, hyperlipidemia, atrial fibrillation, COPD who is home O2 dependent and was admitted on 01/10/18 for fall resulting in LOC 2-3 minutes and left lateral orbit laceration. The patient is seen on morning rounds with his present. He is found sitting upright in bed eating his breakfast. He is currently on supplemental oxygen at 2 L/min. He states that he is feeling fine today. He denies dizziness, headaches, chest pain, palpitations, dyspnea, orthopnea, cough, abdominal pain, nausea vomiting and diarrhea. They have no questions or concerns at this time. Reason For Visit: ORTHOSTATIC HYPOTENSION, ATRIAL FIBRILLATION WITH Physical Exam Vital Signs: Temp Pulse Resp BP Pulse Ox 97.3 F 56 L 17 102/40 L 99 01/12/18 03:37 01/12/18 07:00 01/12/18 03:37 01/12/18 03:37 01/12/18 03:37 Intake & Output 01/11/18 01/12/18 01/13/18 06:59 06:59 06:59 Intake Total 1631 2853 Output Total 325 150 Balance 1306 2703 Weight 58 kg 60.5 kg General appearance: PRESENT: no acute distress, cooperative, hard of hearing, thin, well-developed, well-nourished Head exam: PRESENT: normocephalic. ABSENT: atraumatic - Ecchymosis to left orbit; abrasion to left lower eyelid/cheek. Eye exam: PRESENT: conjunctiva pink, EOMI, PERRLA. ABSENT: scleral icterus Ear exam: PRESENT: normal external ear exam Mouth exam: PRESENT: moist, tongue midline Neck exam: ABSENT: carotid bruit, JVD, lymphadenopathy, thyromegaly Respiratory exam: PRESENT: clear to auscultation roland, symmetrical, unlabored. ABSENT: rales, rhonchi, wheezes Cardiovascular exam: PRESENT: irregular rhythm, +S1, +S2, systolic murmur - 1. ABSENT: diastolic murmur, rubs Pulses: PRESENT: normal dorsalis pedis pul Vascular exam: PRESENT: normal capillary refill GI/Abdominal exam: PRESENT: normal bowel sounds, soft. ABSENT: distended, guarding, mass, organolmegaly, rebound, tenderness Rectal exam: PRESENT: deferred Extremities exam: PRESENT: full ROM. ABSENT: calf tenderness, clubbing, pedal edema Neurological exam: PRESENT: alert, awake, oriented to person, oriented to place , oriented to time, oriented to situation, CN II-XII grossly intact. ABSENT: motor sensory deficit Psychiatric exam: PRESENT: appropriate affect, normal mood. ABSENT: homicidal ideation, suicidal ideation Skin exam: PRESENT: dry, intact, warm, other - Scattered ecchymosis to bilateral upper extremities. ABSENT: cyanosis, rash Results Laboratory Results: 01/12/18 05:43 01/12/18 05:43 01/12/18 01/12/18 05:43 05:43 WBC 10.6 H RBC 3.56 L Hgb 11.2 L Hct 33.8 L MCV 95 MCH 31.4 MCHC 33.2 RDW 16.4 H Plt Count 111 L Sodium 147.5 H Potassium 3.4 L Chloride 111 H Carbon Dioxide 26 Anion Gap 11 BUN 21 H Creatinine 1.04 Est GFR ( Amer) > 60 Est GFR (Non-Af Amer) > 60 Glucose 103 Calcium 8.4 01/10/18 01/10/18 01/11/18 16:52 22:00 10:29 Troponin I 0.012 0.038 0.051 NT-Pro-B Natriuret Pep 01/11/18 01/11/18 10:29 16:54 Troponin I 0.051 NT-Pro-B Natriuret Pep 35535 H Impressions: Head CT 01/10/18 11:58 IMPRESSION: CHRONIC CHANGES OF ATROPHY AND MICROVASCULAR ISCHEMIA. NO ACUTE PROCESS. EVIDENCE OF ACUTE STROKE: NO. Assessment & Plan - Diagnosis (1) Fall Qualifiers: Encounter type: initial encounter Qualified Code(s): W19.XXXA - Unspecified fall, initial encounter Is this a current diagnosis for this admission?: Yes Plan: The patient presented to the emergency department for a fall from standing resulting in loss of consciousness for less than [address] revealed chronic changes of atrophy and microvascular ischemia. No acute processes. EKG demonstrates atrial fibrillation with left bundle branch block that is unchanged from previously. By telemetry, patient is also having frequent PVCs and 4-5 beat runs of Vtach Patient was noted to be orthostatic. He is admitted to the medical floor on continuous cardiac telemetry. Supplemental oxygen is required to maintain oxygen saturations greater than 90% The patient was adequately rehydrated with IV fluids; will address orthostasis with blood pressure medications medications. Appreciate PT/OT evaluation; recommending home PT/OT at discharge which patient' s continues to refuse the service. Fall precautions. (2) Concussion with loss of consciousness <= 30 min Qualifiers: Encounter type: initial encounter Qualified Code(s): S06.0X1A - Concussion with loss of consciousness of 30 minutes or less, initial encounter Is this a current diagnosis for this admission?: Yes Plan: As above. (3) Laceration of face Qualifiers: Encounter type: initial encounter Qualified Code(s): S01.81XA - Laceration without foreign body of other part of head, initial encounter Is this a current diagnosis for this admission?: Yes Plan: Secondary to #1. Suture repair by ED provider. Tylenol for pain. Triple antibiotic ointment and clean dry dressing daily and as needed to facial laceration. (4) Atrial fibrillation Qualifiers: Atrial fibrillation type: chronic Qualified Code(s): I48.2 - Chronic atrial fibrillation Is this a current diagnosis for this admission?: Yes Plan: The patient is noted to have an irregularly irregular rhythm; A. fib with a left bundle branch block per EKG. By telemetry the patient's varies rapidly between 70 and 90. Underlying atrial fibrillation with frequent PVCs and 4-5 beat runs of V. tach. Primary plan per cardiology; appreciate their assistance. Medications per cardiology's recommendations. (5) COPD (chronic obstructive pulmonary disease) Is this a current diagnosis for this admission?: Yes Plan: Stable and without exacerbation at this time. As needed nebulizer treatments are available as needed. (6) Chronic respiratory failure Qualifiers: Respiratory failure complication: hypoxia Qualified Code(s): J96.11 - Chronic respiratory failure with hypoxia Is this a current diagnosis for this admission?: Yes Plan: Stable; the patient has chronic respiratory failure secondary to COPD and CHF; home O2 dependent at 2 L/min. We will continue supplemental oxygen as needed to maintain oxygen saturations. Nebulizer treatments available as needed. (7) Hypertension Qualifiers: Hypertension type: essential hypertension Qualified Code(s): I10 - Essential (primary) hypertension Is this a current diagnosis for this admission?: Yes Plan: Cardiology has been consulted; appreciate their assistance. Medications per cardiology's recommendations. (8) Orthostatic hypotension Is this a current diagnosis for this admission?: Yes Plan: The patient has been adequately rehydrated; IV fluids have been discontinued. Cardiology has been consulted; appreciate their assistance. Medications per cardiology's recommendations. (9) CHF (congestive heart failure) Qualifiers: Heart failure type: combined systolic and diastolic Heart failure chronicity: chronic Qualified Code(s): I50.42 - Chronic combined systolic ( congestive) and diastolic (congestive) heart failure Is this a current diagnosis for this admission?: Yes Plan: ProBNP elevated to greater than 23,000. Echocardiogram (11/23/16): LVEF 40-45%, left ventricular hypertrophy, unable to assess ventricular diastolic function. Severe pulmonary hypertension. Cardiology has been consulted; appreciate their assistance. Medications per cardiology's recommendations. The patient is on a low-sodium diet. Daily weights. (10) Elevated troponin Is this a current diagnosis for this admission?: Yes Plan: Troponins are trending upward (<0.012--> 0.038--> 0.051); likely secondary to CHF. The patient denies chest pain or palpitations. Cardiology has been consulted; appreciate their recommendations. (11) DNR (do not resuscitate) Is this a current diagnosis for this admission?: Yes Plan: Strongly recommend reapproaching topic of palliative care/hospice services in the near future; patient's is not amenable to discussion at this time. - Time Time Spent with patient: 15-24 minutes Medications reviewed and adjusted accordingly: Yes Anticipated discharge: Home Within: Other - Once cleared by cardiology.
--- NOTE | 2018-01-12 15:29 | PDOC PROGRESS REPORT ---
Subjective Progress Note for:: 01/12/18 Subjective:: Patient seems to be doing better with gradual improvement. Pt is denying any chest arm or neck discomfort. Patient denying any PND, orthopnea. Patient denied any sustained palpitations, dizziness, syncope, near syncope. Patient denying any fever chills. Patient denying any other significant discomfort. Patient is maintaining atrial fibrillation with controlled ventricular response Review of systems: Rest review of systems negative. Medications: Medications have been reviewed. Reason For Visit: ORTHOSTATIC HYPOTENSION, ATRIAL FIBRILLATION WITH Physical Exam Vital Signs: Temp Pulse Resp BP Pulse Ox 97.3 F 77 16 102/40 L 97 01/12/18 03:37 01/12/18 09:29 01/12/18 09:29 01/12/18 03:37 01/12/18 09:29 Intake & Output 01/11/18 01/12/18 01/13/18 06:59 06:59 06:59 Intake Total 1631 2853 Output Total 325 150 Balance 1306 2703 Weight 58 kg 60.5 kg Exam: GENERAL: well-nourished and in no acute distress. Alert and oriented x3 HEAD: Atraumatic, normocephalic. Sutured wound noted above left eyebrow. EYES: Pupils equal round and reactive to light, extraocular movements intact, sclera anicteric, conjunctiva are normal. ENT: TMs normal, nares patent, oropharynx clear without exudates. Moist mucous membranes. No oral ulcerations or bleeding gums noted NECK: supple without lymphadenopathy. Trachea is central. No cervical or axillary lymphadenopathy noted. Carotids are 2+, JVD 8-10 cm LUNGS: Respiration seems nonlabored, no significant accessory muscle action noted. Bibasilar fine crackles are noted. No wheezes rales or rhonchi noted. No significant dullness noted on percussion. CHEST: Palpation of the chest wall shows no significant chest wall tenderness. 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 ABDOMEN: Soft, no significant tenderness appreciated, normoactive bowel sounds. No guarding, no rebound. No rigidity noted . No masses appreciated. EXTREMITIES: Pedal pulses are 1-2+, no calf tenderness noted. No clubbing or cyanosis. Trace to 1+ pedal edema noted NEUROLOGICAL: Focused neurological exam showed no significant neurologic deficit. Normal speech, no focal weakness appreciated. PSYCH: Normal mood, normal affect. Judgment and insight within normal limits. SKIN: No significant ecchymosis, skin is noted to be warm. MUSCULOSKELETAL EXAM: No significant acute joint swelling noted. Results Laboratory Results: 01/12/18 05:43 01/12/18 05:43 01/12/18 01/12/18 05:43 05:43 WBC 10.6 H RBC 3.56 L Hgb 11.2 L Hct 33.8 L MCV 95 MCH 31.4 MCHC 33.2 RDW 16.4 H Plt Count 111 L Sodium 147.5 H Potassium 3.4 L Chloride 111 H Carbon Dioxide 26 Anion Gap 11 BUN 21 H Creatinine 1.04 Est GFR ( Amer) > 60 Est GFR (Non-Af Amer) > 60 Glucose 103 Calcium 8.4 01/10/18 01/10/18 01/11/18 16:52 22:00 10:29 Troponin I 0.012 0.038 0.051 NT-Pro-B Natriuret Pep 01/11/18 01/11/18 10:29 16:54 Troponin I 0.051 NT-Pro-B Natriuret Pep 55866 H Impressions: Head CT 01/10/18 11:58 IMPRESSION: CHRONIC CHANGES OF ATROPHY AND MICROVASCULAR ISCHEMIA. NO ACUTE PROCESS. EVIDENCE OF ACUTE STROKE: NO. Assessment & Plan - Diagnosis (1) Syncope Qualifiers: Syncope type: unspecified Qualified Code(s): R55 - Syncope and collapse Is this a current diagnosis for this admission?: Yes (2) CHF (congestive heart failure) Qualifiers: Heart failure type: combined systolic and diastolic Heart failure chronicity: chronic Qualified Code(s): I50.42 - Chronic combined systolic ( congestive) and diastolic (congestive) heart failure Is this a current diagnosis for this admission?: Yes (3) Elevated troponin Is this a current diagnosis for this admission?: Yes (4) Orthostatic hypotension Is this a current diagnosis for this admission?: Yes (5) Hypertension Qualifiers: Hypertension type: essential hypertension Qualified Code(s): I10 - Essential (primary) hypertension Is this a current diagnosis for this admission?: Yes (6) Fall Qualifiers: Encounter type: initial encounter Qualified Code(s): W19.XXXA - Unspecified fall, initial encounter Is this a current diagnosis for this admission?: Yes (7) Atrial fibrillation Qualifiers: Atrial fibrillation type: chronic Qualified Code(s): I48.2 - Chronic atrial fibrillation Is this a current diagnosis for this admission?: Yes - Notes Notes: Patient generally feels better. JVP today's noted to be mildly elevated. Continue diuretic therapy at low-dose. Will switch to entresto. Syncope: The cause is undetermined at this time. There could be multiple differential diagnosis. This includes cardiac arrhythmia in this patient's age group, hypotension secondary to orthostasis, seizure disorder, hypoglycemia et cetera. Both vicki and tachyarrhythmias are possible. Continue with cardiac monitoring. Maintain electrolytes within normal limit. May need to consider outpatient cardiac monitoring using mobile cardiac monitoring engineer if clinically indicated. Recommend orthostatic blood pressure measurements and avoiding medications that can cause orthostasis. Congestive heart failure: Previous echocardiogram shows systolic and diastolic dysfunction. Optimize therapy with increasing doses of beta-mata. Will recommend switch to entresto from lisinopril. In this regard will place patient on valsartan in preparation to switch to entresto. Made switch to entresto today. Have reduced dose of Lasix to 40 mg p.o. daily. Elevated troponin I: Most likely related to CHF and syncope. Patient is not be a good candidate for revascularization, in the absence of significant chest pain or ischemic symptoms, due to advanced age and general debility. Fall: Patient will benefit from physical therapy. Hypertension: Recommend liberal control. Atrial fibrillation: Patient describes history of chronic atrial fibrillation. However she is not on chronic anticoagulation because of contraindications. Patient claims that this was stopped by his trend investigator and possibly by his project coordinator rn. At this time will leave patient off chronic anticoagulation until primary therapist and his primary care trend investigator take over the care. Dr. Marley to see patient tomorrow. - Time Time with patient: Greater than 35 minutes - CODE STATUS : was discussed, patient remains DO NOT RESUSCITATE. Surrogate decision-maker unchanged. Multiple medical problems were addressed. More than 50% of the time spent coordinating care, discussing management plans with involved caregivers. Management plans discussed with involved personnels. Medical decision making was of moderate to high complexity, patient's has multiple comorbidities. Medications reviewed and adjusted accordingly: Yes
[2018-01-12] MEDS: ATORVASTATIN CALCIUM 20 MG TABLET PO SCH (21:28)
[2018-01-13 05:29] LABS: HEMATOCRIT 38.1 % (37.9-51.0); HEMOGLOBIN 12.3 g/dL (13.5-17.0); MEAN CORPUSCULAR HGB CONC 32.3 g/dL (32.0-36.0); MEAN CORPUSCULAR VOLUME 96 fl (80-97); PLATELET COUNT 128 10^3/uL (150-450); RED BLOOD COUNT 3.97 10^6/uL (4.35-5.55); WHITE BLOOD COUNT 8.6 10^3/uL (4.0-10.5)
[2018-01-13 05:55] LABS: ANION GAP 15 (5-19); BLOOD UREA NITROGEN 21 mg/dL (7-20); CALCIUM 8.5 mg/dL (8.4-10.2); CARBON DIOXIDE 26 mmol/L (22-30); CHLORIDE 109 mmol/L (98-107); GLUCOSE 112 mg/dL (75-110); POTASSIUM 3.6 mmol/L (3.6-5.0); SODIUM 149.6 mmol/L (137-145)
[2018-01-13] MEDS: HEPARIN SOD (PORCINE) 5,000 UNIT/ML 1 ML SYRINGE SUBCUT SCH ×3 (06:35→22:27)
[2018-01-13] MEDS ORDERED: ALBUTEROL SULFATE HFA (90 MCG/PUFF) 8 GM MDI (1 MDI/ER DISP) IH PRN (08:18)
[2018-01-13] MEDS ORDERED: ALBUTEROL SULFATE HFA (90 MCG/PUFF) 200 PUFF/8.5 GM MDI IH PRN (08:37)
--- NOTE | 2018-01-13 08:37 | EKG REPORT ---
SEVERITY:- ABNORMAL ECG - ATRIAL FIBRILLATION, V-RATE 59-98 VENTRICULAR PREMATURE COMPLEX LEFT BUNDLE BRANCH BLOCK : Confirmed by: Ana Maria Ford 13-Jan-2018 08:37:00
--- NOTE | 2018-01-13 08:53 | PDOC PROGRESS REPORT ---
Subjective Progress Note for:: 01/13/18 Subjective:: The patient states to feel better. He still very unsteady on his feet. Long discussion with the about need for physical therapy and possible rehab. She is very concerned and confused about the need for change in medications from the plate grainer. Reason For Visit: ORTHOSTATIC HYPOTENSION, ATRIAL FIBRILLATION WITH Physical Exam Vital Signs: Temp Pulse Resp BP Pulse Ox 98.2 F 87 18 147/75 H 91 L 01/13/18 05:12 01/13/18 05:12 01/13/18 05:12 01/13/18 05:12 01/13/18 05:12 Intake & Output 01/12/18 01/13/18 01/14/18 06:59 06:59 06:59 Intake Total 2853 965 Output Total 150 Balance 2703 965 Weight 60.5 kg 61.2 kg General appearance: PRESENT: mild distress Head exam: PRESENT: other Eye exam: PRESENT: conjunctiva pink Neck exam: ABSENT: JVD Respiratory exam: PRESENT: rhonchi Cardiovascular exam: PRESENT: RRR, +S1, +S2 Pulses: PRESENT: +1 pedal pulses bilateral GI/Abdominal exam: PRESENT: normal bowel sounds, soft Neurological exam: PRESENT: awake Results Laboratory Results: 01/13/18 04:01 01/13/18 04:01 01/13/18 01/13/18 04:01 04:01 WBC 8.6 RBC 3.97 L Hgb 12.3 L Hct 38.1 MCV 96 MCH 31.0 MCHC 32.3 RDW 17.0 H Plt Count 128 L Sodium 149.6 H Potassium 3.6 Chloride 109 H Carbon Dioxide 26 Anion Gap 15 BUN 21 H Creatinine 1.04 Est GFR ( Amer) > 60 Est GFR (Non-Af Amer) > 60 Glucose 112 H Calcium 8.5 01/10/18 01/10/18 01/11/18 16:52 22:00 10:29 Troponin I 0.012 0.038 0.051 NT-Pro-B Natriuret Pep 01/11/18 01/11/18 10:29 16:54 Troponin I 0.051 NT-Pro-B Natriuret Pep 16946 H Impressions: Head CT 01/10/18 11:58 IMPRESSION: CHRONIC CHANGES OF ATROPHY AND MICROVASCULAR ISCHEMIA. NO ACUTE PROCESS. EVIDENCE OF ACUTE STROKE: NO. Assessment & Plan - Diagnosis (1) Atrial fibrillation Qualifiers: Atrial fibrillation type: chronic Qualified Code(s): I48.2 - Chronic atrial fibrillation Is this a current diagnosis for this admission?: Yes Plan: We will discuss with cardiology about change in medications (2) CHF (congestive heart failure) Qualifiers: Heart failure type: combined systolic and diastolic Heart failure chronicity: chronic Qualified Code(s): I50.42 - Chronic combined systolic ( congestive) and diastolic (congestive) heart failure Is this a current diagnosis for this admission?: Yes Plan: We will readjust the medications. The cardiology has started Entresto. (3) Fall Qualifiers: Encounter type: initial encounter Qualified Code(s): W19.XXXA - Unspecified fall, initial encounter Is this a current diagnosis for this admission?: Yes Plan: The patient will need physical therapy will discuss the rehab (4) Laceration of face Qualifiers: Encounter type: initial encounter Qualified Code(s): S01.81XA - Laceration without foreign body of other part of head, initial encounter Is this a current diagnosis for this admission?: Yes Plan: The sutures will need to be removed in about a week to 10 days (5) Diabetes mellitus Is this a current diagnosis for this admission?: Yes Plan: Continue current treatment (6) Heart failure, diastolic, with acute decompensation Is this a current diagnosis for this admission?: Yes Plan: Continue current treatment
[2018-01-13] MEDS ORDERED: SACUBITRIL/VALSARTAN 24 MG/26 MG TABLET PO SCH (10:00)
[2018-01-13] MEDS ORDERED: (PENDING PHARMACY ID) (Iron Ps Complex/B12/Folic Acid [Poly-Iron 150 Forte Capsule] 1 CAP) PO SCH (10:00)
[2018-01-13] MEDS: POTASSIUM CHLORIDE 10 MEQ TABLET.SA PO SCH ×2 (10:58→17:18)
[2018-01-13] MEDS: FUROSEMIDE 40 MG TABLET PO SCH (10:58)
[2018-01-13] MEDS: METOPROLOL SUCCINATE 25 MG TAB.SR.24H PO SCH ×2 (10:58→22:23)
[2018-01-13] MEDS: SPIRONOLACTONE 25 MG TABLET PO SCH (11:01)
[2018-01-13] MEDS: DOCUSATE SODIUM 100 MG CAPSULE PO SCH (11:02)
[2018-01-13] MEDS ORDERED: ONDANSETRON HCL INJ/PF 4 MG/2 ML SDV IV PRN (15:30)
[2018-01-13] MEDS ORDERED: IRON POLYSACCHARIDES COMPLEX 150 MG CAPSULE PO ONE (17:00)
--- NOTE | 2018-01-13 18:50 | PROGRESS NOTE E ---
Progress Note NAME: AISHWARYA MCLAUGHLIN : 1930 AGE: 87Y DATE: 01/13/2018 ROOM: 535 SUBJECTIVE: Note that the patient's chart has been reviewed. The patient continues to be in atrial fibrillation with ventricular response in the 90s. He denies any chest pain or discomfort. No PND or orthopnea. There is no dizziness when the patient is standing up. He has to be helped to stand up. The patient appears to be very weak and debilitated. There are no TIA or CVA symptoms. There is no obvious bleeding. The patient denies any chest pain or discomfort. There is no PND or orthopnea. There is no leg edema. OBJECTIVE: GENERAL: On examination, the patient appears to be chronically ill and malnourished. VITAL SIGNS: He is afebrile. He has a pulse of 98 beats per minute, blood pressure 153/93. His respirations are 20 per minute. O2 sats are 98% on 3 liters nasal cannula. HEENT: Head is atraumatic, normocephalic. Eyes: Pupils are equal, round, regular, react to light and accommodation. Extraocular movements are normal. There is no conjunctival pallor. There is no scleral icterus. ENT negative. NECK: Supple, without any lymphadenopathy. There is no JVD. Carotids are equal. There is no bruit. There is no goiter. CHEST: There is no chest wall tenderness. There are no accessory muscles of respiration in use. Chest is clear to auscultation without any rhonchi, rales or wheezing. There is no chest wall tenderness on palpation. HEART: S1, S2 are heard. S1 is of variable intensity. There is no S3 gallop. There is no S4 gallop. There is a systolic murmur at the left sternal border, at the apex. There is no rub. ABDOMEN: Soft, nontender. There is no hepatosplenomegaly. Bowel sounds are well-heard. EXTREMITIES: Femorals are diminished. There is no femoral bruit. Leg pulses are diminished. There is no pedal edema. There is no DVT or cellulitis. There is no calf tenderness. CENTRAL NERVOUS SYSTEM: The patient is conscious, awake, alert, oriented x3, with no focal deficits. PSYCHIATRIC: The patient's judgment and insight are intact. His affect is normal. DIAGNOSTICS: The patient's EKG shows atrial fibrillation with left bundle branch block pattern. Ventricular response is 81. The patient's white count is 8600, hemoglobin is 12.3, hematocrit is 31.8, platelet count is 138,000. The patient's sodium is 149.6, potassium is 3.6, chloride is 109. The patient's CO2 is 26. The patient's BUN is 21, creatinine is 1.04. GFR is greater than 60. His glucose is 112 and his calcium is 8.5. His troponin I was 0.051. IMPRESSION: 1. SYNCOPE, NO RECURRENCE, MOST LIKELY SECONDARY TO ATRIAL FIBRILLATION WITH RAPID VENTRICULAR RESPONSE AND POSTURAL HYPOTENSION. At present, postural hypotension seems to be resolved. 2. CHF, MOST LIKELY ACUTE ON CHRONIC SYSTOLIC HEART FAILURE. At present, patient compensated without any evidence of heart failure. Note that the patient's was confused with the medication. She does not want any new medications. Since the patient's last echocardiogram done in 2016 showed LV ejection fraction of 40% to 45%, will discontinue the patient's Pj, and later, after 24 to 48 hours, will start the patient back on his lisinopril. 3. Atrial fibrillation, at present with ventricular response fairly well-controlled. The patient is not a candidate for anticoagulation, because he has a past history of significant thrombocytopenia, requiring chemotherapy and steroids. Hence, patient is not a candidate for blood thinners. The patient used to be on Plavix, but in view of the patient's debilitated state, patient is at high risk for bleeding. Hence, will not start any anticoagulation. 4. ELEVATED TROPONIN I. These were trended down, although the elevated troponin I is in the indeterminate level. No definite evidence of non-ST elevation ME. 5. ORTHOSTATIC HYPOTENSION. At present, these symptoms are much improved, most likely secondary to dehydration. 6. HYPERTENSION. At present, blood pressure is slightly elevated, but will wait until the restarting of the patient's lisinopril. 7. FALL. The patient is very unsteady in his gait. Will require physical therapy to help ambulate the patient. Note, Dr. Mccann is the attending, whom I discussed the case with, who has discussed with the patient's . The patient's is not keen on having the patient go to a rehab facility. She wants to take him home. Note that the patient is a DNR. The is the healthcare decision maker. Note, 30 minutes spent on the patient, with more than 50% of the time spent on direct patient care. In view of the multiple comorbidities, the case is moderately complex. The patient's medications have been reviewed. Will follow with you. Later on, will check the patient's echocardiogram. Thank you. DICTATING PHYSICIAN: JOSE ARMANDO CHERRY M.D. [id number] LLUVIAY#: [id number] ID: [id number] JOB#: [id number] ACCT: [id number] cc: > TAMIKO
[2018-01-13] MEDS: ATORVASTATIN CALCIUM 20 MG TABLET PO SCH (22:24)
[2018-01-14] MEDS: HEPARIN SOD (PORCINE) 5,000 UNIT/ML 1 ML SYRINGE SUBCUT SCH ×3 (05:26→21:38)
[2018-01-14] MEDS: METOPROLOL SUCCINATE 25 MG TAB.SR.24H PO SCH ×2 (10:20→21:39)
[2018-01-14] MEDS: FUROSEMIDE 40 MG TABLET PO SCH (10:20)
[2018-01-14] MEDS: POTASSIUM CHLORIDE 10 MEQ TABLET.SA PO SCH ×2 (10:20→19:08)
[2018-01-14] MEDS: SPIRONOLACTONE 25 MG TABLET PO SCH (10:20)
[2018-01-14] MEDS: DOCUSATE SODIUM 100 MG CAPSULE PO SCH (10:20)
[2018-01-14] MEDS: IRON POLYSACCHARIDES COMPLEX 150 MG CAPSULE PO SCH (10:20)
--- NOTE | 2018-01-14 11:57 | PDOC PROGRESS REPORT ---
Subjective Progress Note for:: 01/14/18 Subjective:: The patient and his states that he is doing better. He was up in the chair having breakfast. He denies any new symptoms. He was seen by the jewel bearing driller and medication changes have been made. Again discussed with the about rehab locally she seem to be agreeing to it. Reason For Visit: ORTHOSTATIC HYPOTENSION, ATRIAL FIBRILLATION WITH Physical Exam Vital Signs: Temp Pulse Resp BP Pulse Ox 97.6 F 94 17 135/77 H 96 01/14/18 08:00 01/14/18 08:00 01/14/18 08:00 01/14/18 08:00 01/14/18 08:00 Intake & Output 01/13/18 01/14/18 01/15/18 06:59 06:59 06:59 Intake Total 965 1732 Balance 965 1732 Weight 61.2 kg 61.8 kg General appearance: PRESENT: mild distress Head exam: PRESENT: other Eye exam: PRESENT: conjunctiva pink Neck exam: PRESENT: carotid bruit. ABSENT: JVD Respiratory exam: PRESENT: crackles Cardiovascular exam: PRESENT: irregular rhythm, +S1, +S2 GI/Abdominal exam: PRESENT: normal bowel sounds, soft Extremities exam: PRESENT: tenderness Musculoskeletal exam: PRESENT: tenderness Neurological exam: PRESENT: alert, awake Results Laboratory Results: 01/13/18 04:01 01/13/18 04:01 01/10/18 01/10/18 01/11/18 16:52 22:00 10:29 Troponin I 0.012 0.038 0.051 NT-Pro-B Natriuret Pep 01/11/18 01/11/18 10:29 16:54 Troponin I 0.051 NT-Pro-B Natriuret Pep [id number] H Impressions: Head CT 01/10/18 11:58 IMPRESSION: CHRONIC CHANGES OF ATROPHY AND MICROVASCULAR ISCHEMIA. NO ACUTE PROCESS. EVIDENCE OF ACUTE STROKE: NO. Assessment & Plan - Diagnosis (1) Atrial fibrillation Qualifiers: Atrial fibrillation type: chronic Qualified Code(s): I48.2 - Chronic atrial fibrillation Is this a current diagnosis for this admission?: Yes Plan: As discussed with cardiology will adjust the medications (2) CHF (congestive heart failure) Qualifiers: Heart failure type: combined systolic and diastolic Heart failure chronicity: chronic Qualified Code(s): I50.42 - Chronic combined systolic ( congestive) and diastolic (congestive) heart failure Is this a current diagnosis for this admission?: Yes Plan: Improved we will continue current treatment (3) Fall Qualifiers: Encounter type: initial encounter Qualified Code(s): W19.XXXA - Unspecified fall, initial encounter Is this a current diagnosis for this admission?: Yes (4) Laceration of face Qualifiers: Encounter type: initial encounter Qualified Code(s): S01.81XA - Laceration without foreign body of other part of head, initial encounter Is this a current diagnosis for this admission?: Yes Plan: The sutures will need to be removed in about a week to 10 days (5) Diabetes mellitus Is this a current diagnosis for this admission?: Yes Plan: Continue current treatment (6) Heart failure, diastolic, with acute decompensation Is this a current diagnosis for this admission?: Yes Plan: Continue current treatment
[2018-01-14] MEDS: LISINOPRIL 5 MG TABLET PO SCH (21:38)
[2018-01-14] MEDS: ATORVASTATIN CALCIUM 20 MG TABLET PO SCH (21:39)
--- NOTE | 2018-01-14 22:20 | PROGRESS NOTE E ---
Progress Note NAME: AISHWARYA MCLAUGHLIN : 1930 AGE: 87Y DATE: 01/14/2018 ROOM: 535 SUBJECTIVE: The patient is sitting up in a chair. Denies any chest pain or discomfort. There are no anginal symptoms. There is no PND, orthopnea, or leg edema. The patient does appear to be weak and debilitated. As per the the physical therapy is helping in ambulating the patient but she wants more input from physical therapy to help the patient ambulate since that he is immobilized as he sits in the chair for a length of time he becomes very rigid. The patient continues to be in atrial fibrillation. There are no TIA or CVA symptoms. The patient denies any shortness of breath. There are no palpitations. There is no pedal edema. OBJECTIVE: GENERAL: On examination the patient appears to be chronically ill and very debilitated. VITAL SIGNS: He is afebrile with a temperature of 97.6 degrees Fahrenheit, pulse is 94 beats per minute irregularly irregular, the monitor shows atrial fibrillation. There is no ventricular arrhythmia seen on the monitor. The patient's blood pressure is 135/77, respirations are 17 per minute, O2 saturations are 96% on room air. HEENT: Head is atraumatic, normocephalic. Eyes: Pupils are equal, round, regular, react to light and accommodation. Extraocular movements are normal. There is no conjunctival pallor. There is no scleral icterus. ENT is negative. NECK: Supple without any lymphadenopathy. There is no JVD. Carotids are equal. There is no bruit. There is no goiter. CHEST: There is no chest wall tenderness. There are no accessory muscles of respiration in use. Chest is clear to auscultation without any rhonchi, rales or wheezing. HEART: S1, S2 is heard. S1 is of variable intensity. There is no S3 gallop. There is no S4 gallop. There is a systolic murmur in the left sternal border and the apex. There is no rub. ABDOMEN: Soft, nontender. There is no hepatosplenomegaly. Bowel sounds are well-heard. EXTREMITIES: Femorals are diminished. There is no femoral bruit. Leg pulses are diminished. There is no pedal edema. There is no DVT or cellulitis. There is no calf tenderness. CENTRAL NERVOUS SYSTEM: The patient is conscious, awake, alert, oriented x3, with no focal deficits. PSYCHIATRIC: The patient's judgment and insight are intact. His affect is normal. INTAKE/OUTPUT: The patient's intake and output is not recorded accurately. IMPRESSION: 1. SYNCOPE, NO RECURRENCE, MOST LIKELY SECONDARY TO ATRIAL FIBRILLATION WITH RAPID VENTRICULAR RESPONSE AND POSTURAL HYPOTENSION. At present, postural hypotension seems to be resolved. 2. CHF, MOST LIKELY ACUTE ON CHRONIC SYSTOLIC HEART FAILURE AT PRESENT COMPENSATED WITHOUT ANY EVIDENCE OF HEART FAILURE. Note that the patient is off the anastrozole. 3. ATRIAL FIBRILLATION AT PRESENT VENTRICULAR RESPONSE FAIRLY WELL-CONTROLLED. The patient has contraindication with anticoagulation. 4. ELEVATED TROPONIN I. They are trending down, although it has not developed a non-ST elevation AL, the troponin I level is indeterminant. No definite evidence of non-ST elevation AL present. 5. ORTHOSTATIC HYPOTENSION. At present these symptoms are improved, most likely secondary to dehydration. 6. HYPERTENSION. At present blood pressure is fairly well-controlled. 7. FALL. The patient is very unsteady in his gait. Will require physical therapy. Discussed with Dr. Webb the attending physician. RECOMMENDATIONS: I have written orders to start the patient on lisinopril 2.5 mg p.o. q.12 hours starting tonight. We will increase it as tolerated. Continue spironolactone. Continue his metoprolol and continue his Lasix. Note medical decision is of moderate complexity at present. The patient's medications have been reviewed. TIME SPENT: Note 30 minutes spent on the patient with more than 50% of the time spent on direct patient care, discussed with the attending physician and also discussed with the patient and the patient's . We will follow with you. Anticipate discharge soon. Thanking you. DICTATING PHYSICIAN: JOSE ARMANDO CHERRY M.D. [id number] PHY#: [id number] ID: [id number] JOB#: [id number] ACCT: [id number] cc: >
[2018-01-15 05:03] LABS: ABSOLUTE EOSINOPHILS # (AUTO) 0.6 10^3/uL (0.0-0.6); ABSOLUTE LYMPHOCYTES (AUTO) 1.1 10^3/uL (0.5-4.7); ABSOLUTE MONOCYTES (AUTO) 0.9 10^3/uL (0.1-1.4); ABSOLUTE NEUT (AUTO) 6.1 10^3/uL (1.7-8.2); BASOPHILS % (AUTO) 0.5 % (0-2); EOSINOPHILS % (AUTO) 6.6 % (0-6); HEMATOCRIT 35.2 % (37.9-51.0); HEMOGLOBIN 11.8 g/dL (13.5-17.0); LYMPHOCYTES % (AUTO) 12.3 % (13-45); MEAN CORPUSCULAR HEMOGLOBIN 31.9 pg (27.0-33.4); MEAN CORPUSCULAR HGB CONC 33.4 g/dL (32.0-36.0); MEAN CORPUSCULAR VOLUME 95 fl (80-97); MONOCYTES % (AUTO) 9.9 % (3-13); PLATELET COUNT 137 10^3/uL (150-450); RED BLOOD COUNT 3.69 10^6/uL (4.35-5.55); RED CELL DISTRIBUTION WIDTH 16.8 % (11.5-14.0); SEGMENTED NEUTROPHILS % (AUTO) 70.7 % (42-78); TOTAL CELLS COUNTED % (AUTO) 100 %; WHITE BLOOD COUNT 8.6 10^3/uL (4.0-10.5)
[2018-01-15 05:35] LABS: ALANINE AMINOTRANSFERASE 50 U/L (21-72); ALBUMIN 2.8 g/dL (3.5-5.0); ALKALINE PHOSPHATASE 99 U/L (38-126); ANION GAP 14 (5-19); ASPARTATE AMINO TRANSFERASE 27 U/L (17-59); BILIRUBIN,DIRECT 0.3 mg/dL (0.0-0.4); BILIRUBIN,TOTAL 0.5 mg/dL (0.2-1.3); BLOOD UREA NITROGEN 23 mg/dL (7-20); CARBON DIOXIDE 25 mmol/L (22-30); CHLORIDE 107 mmol/L (98-107); GLUCOSE 111 mg/dL (75-110); POTASSIUM 3.6 mmol/L (3.6-5.0); SODIUM 145.7 mmol/L (137-145); TOTAL PROTEIN 5.3 g/dL (6.3-8.2)
[2018-01-15] MEDS: HEPARIN SOD (PORCINE) 5,000 UNIT/ML 1 ML SYRINGE SUBCUT SCH ×2 (06:02→15:16)
[2018-01-15] MEDS: LISINOPRIL 5 MG TABLET PO SCH (09:48)
[2018-01-15] MEDS: FUROSEMIDE 40 MG TABLET PO SCH (09:48)
[2018-01-15] MEDS: POTASSIUM CHLORIDE 10 MEQ TABLET.SA PO SCH (09:48)
[2018-01-15] MEDS: DOCUSATE SODIUM 100 MG CAPSULE PO SCH (09:48)
[2018-01-15] MEDS: METOPROLOL SUCCINATE 25 MG TAB.SR.24H PO SCH (09:48)
[2018-01-15] MEDS: IRON POLYSACCHARIDES COMPLEX 150 MG CAPSULE PO SCH (09:48)
[2018-01-15] MEDS: SPIRONOLACTONE 25 MG TABLET PO SCH (09:48)
[2018-01-15 09:50] VITALS: BP 147/69
[2018-01-15] MEDS ORDERED: LISINOPRIL 5 MG TABLET PO ONE (10:30)
--- NOTE | 2018-01-15 11:44 | PDOC TRANSFER SUMMARY ---
General - Admit/Disc Date/PCP Admission Date/Primary Care Provider: 01/10/18 15:30 RANDY JEFFERY, Discharge Date: 01/15/18 - Discharge Diagnosis (1) Atrial fibrillation Is this a current diagnosis for this admission?: Yes Summary: Continue current medications (2) CHF (congestive heart failure) Is this a current diagnosis for this admission?: Yes Summary: Continue DASH diet and diuretics (3) Fall Is this a current diagnosis for this admission?: Yes Summary: Place patient on fall precautions (4) Laceration of face Is this a current diagnosis for this admission?: Yes Summary: We will need to have stitches removed in about 7 days (5) Diabetes mellitus Is this a current diagnosis for this admission?: Yes Summary: Continue current treatment (6) Heart failure, diastolic, with acute decompensation Is this a current diagnosis for this admission?: Yes Summary: Continue diuretics - Additional Information Resuscitation Status: Do Not Resuscitate Discharge Diet: Cardiac Discharge Activity: Activity As Tolerated, Balance Activity w/Rest, Weigh Daily Home Medications: Albuterol Sulfate [Proair HFA] 2 puff IH Q4HP PRN 11/23/16 Alendronate Sodium [Fosamax "Weekly" 35 mg Tablet] 35 mg PO MO 11/23/16 Atorvastatin Calcium [Lipitor 20 mg Tablet] 20 mg PO QHS 11/23/16 Iron Ps Complex/B12/Folic Acid [Poly-Iron 150 Forte Capsule] 1 cap PO DAILY Lisinopril [Prinivil 10 mg Tablet] 5 mg PO BID 11/23/16 Acetaminophen [Tylenol 325 mg Tablet] 650 mg PO Q4HP PRN tablet 01/15/18 Docusate Sodium [Colace 100 mg Capsule] 100 mg PO DAILY capsule 01/15/18 Furosemide [Lasix 40 mg Tablet] 40 mg PO DAILY tablet 01/15/18 Lisinopril [Prinivil 5 mg Tablet] 5 mg PO Q12 tablet 01/15/18 Mag Hydrox/Al Hydrox/Simeth [Maalox Plus Susp 30 Udcup] 30 ml PO Q6HP PRN udc 01/15/18 Magnesium Hydroxide [Milk of Magnesia 30 ml Udcup] 30 ml PO HSP PRN udc Metoprolol Succinate [Toprol Xl 25 mg Tab.sr] 25 mg PO Q12 tab.sr.24h 01/15/18 Potassium Chloride [Klor-Con 10] 10 meq PO DAILY #0 01/15/18 Spironolactone [Aldactone 25 mg Tablet] 25 mg PO DAILY tablet 01/15/18 History of Present Illness Admission Date/PCP: 01/10/18 15:30 RANDY JEFFERY, History of Present Illness: AISHWARYA MCLAUGHLIN JR is a 87 year old male Hospital Course Hospital Course: The patient did well after the hospitalization. He did not have any recurrence of falls or syncopal episodes. His blood pressure and he is A. fib medications have been readjusted. He was seen by the cardiology on the follow-up. Long discussion with the family about the need for the rehab. He did quite well with physical therapy but I still think that he would benefit from physical therapy and rehab facility Physical Exam Vital Signs: Temp Pulse Resp BP Pulse Ox 98.5 F 59 L 17 147/69 H 92 01/15/18 08:08 01/15/18 08:08 01/14/18 23:20 01/15/18 08:08 01/15/18 08:08 Intake & Output 01/14/18 01/15/18 01/16/18 06:59 06:59 06:59 Intake Total 1732 1012 Balance 1732 1012 Weight 61.8 kg 63.1 kg General appearance: PRESENT: no acute distress Head exam: PRESENT: other Eye exam: PRESENT: conjunctiva pink Neck exam: PRESENT: carotid bruit. ABSENT: JVD Respiratory exam: PRESENT: crackles Cardiovascular exam: PRESENT: irregular rhythm, +S1, +S2 GI/Abdominal exam: PRESENT: normal bowel sounds, soft Extremities exam: PRESENT: tenderness, +1 edema Musculoskeletal exam: PRESENT: tenderness Neurological exam: PRESENT: awake Results Laboratory Results: 01/15/18 04:17 01/15/18 04:17 01/15/18 01/15/18 04:17 04:17 WBC 8.6 RBC 3.69 L Hgb 11.8 L Hct 35.2 L MCV 95 MCH 31.9 MCHC 33.4 RDW 16.8 H Plt Count 137 L Seg Neutrophils % 70.7 Lymphocytes % 12.3 L Monocytes % 9.9 Eosinophils % 6.6 H Basophils % 0.5 Absolute Neutrophils 6.1 Absolute Lymphocytes 1.1 Absolute Monocytes 0.9 Absolute Eosinophils 0.6 Absolute Basophils 0.0 Sodium 145.7 H Potassium 3.6 Chloride 107 Carbon Dioxide 25 Anion Gap 14 BUN 23 H Creatinine 0.94 Est GFR ( Amer) > 60 Est GFR (Non-Af Amer) > 60 Glucose 111 H Calcium 8.0 L Magnesium 1.8 Total Bilirubin 0.5 AST 27 ALT 50 Alkaline Phosphatase 99 Total Protein 5.3 L Albumin 2.8 L 01/10/18 01/10/18 01/11/18 16:52 22:00 10:29 Troponin I 0.012 0.038 0.051 NT-Pro-B Natriuret Pep 01/11/18 01/11/18 01/15/18 10:29 16:54 04:17 Troponin I 0.051 NT-Pro-B Natriuret Pep 36280 H 42315 H Impressions: Head CT 01/10/18 11:58 IMPRESSION: CHRONIC CHANGES OF ATROPHY AND MICROVASCULAR ISCHEMIA. NO ACUTE PROCESS. EVIDENCE OF ACUTE STROKE: NO. Qualifiers - * PATIENT BEING DISCHARGED WITH ANY OF THE FOLLOWING DIAGNOSIS: Heart Failure HF Pt being discharged on ACEI for LVEF less than 40%?: Yes HF Pt being discharged on ARBS for LVEF less than 40%?: Yes HF Pt with Afib discharged with Warfarin?: No Reason(s) for not prescribing Warfarin:: Medical Contraindication HF Pt discharged on evidence-based Beta Matthew:: Yes
--- NOTE | 2018-01-15 20:50 | PROGRESS NOTE E ---
Progress Note NAME: AISHWARYA MCLAUGHLIN : 1930 AGE: 87Y DATE: 01/15/2018 ROOM: 535 SUBJECTIVE: The patient is sitting up in a chair. Denies any chest pain or discomfort. There are no anginal symptoms. He is tolerating his lisinopril well. There is no PND, orthopnea, or leg edema. The patient does appear to be weak and debilitated. The [facility]. The patient continues to be in atrial fibrillation with controlled ventricular response. There are no TIA or CVA symptoms. The patient denies any shortness of breath. There are no palpitations. There is no pedal edema. OBJECTIVE: GENERAL: On examination the patient appears to be chronically ill and very debilitated and seems older than his stated age. VITAL SIGNS: He is afebrile with a temperature of 98.5 degrees Fahrenheit, pulse is 59 beats per minute, blood pressure is 147/69, respirations are 18 per minute, O2 saturations are 92% on room air. HEENT: Head is atraumatic, normocephalic. Eyes: Pupils are equal, round, regular, reactive to light and accommodation. Extraocular movements are normal. There is no conjunctival pallor. There is no scleral icterus. ENT is negative. NECK: Supple without any lymphadenopathy. There is no JVD. Carotids are equal. There is no bruit. There is no goiter. CHEST: There is no chest wall tenderness. There are no accessory muscles of respiration in use. Chest is clear to auscultation without any rhonchi, rales or wheezing. HEART: S1, S2 is heard. S1 is of variable intensity. There is no S3 gallop. There is no S4 gallop. There is a systolic murmur in the left sternal border and the apex. There is no rub. ABDOMEN: Soft, nontender. There is no hepatosplenomegaly. Bowel sounds are well heard. EXTREMITIES: Femorals are diminished. There is no femoral bruit. Leg pulses are diminished. There is no pedal edema. There is no DVT or cellulitis. There is no cyanosis or clubbing. There is no calf tenderness. CENTRAL NERVOUS SYSTEM: The patient is conscious, awake, alert, oriented x3, with no focal deficits. PSYCHIATRIC: The patient's judgment and insight are intact. His affect is normal. INTAKE/OUTPUT: The patient's intake and output has not been accurately recorded. LABORATORY: The patient's white count is 8,600; hemoglobin is 11.8, hematocrit is 35.2 and the platelet count is 137,000. The patient's sodium is 145.7, potassium is 3.6, chloride is 107, CO2 is 25. The patient's BUN is 23, creatinine 0.94, GFR is greater than 60. His glucose is 111 and calcium is 8.0. Liver function tests are normal. His COURT STENOGRAPHER-ProBNP is 21,100. His albumin is 2.8, total protein 5.3. IMPRESSION: 1. SYNCOPE, NO RECURRENCE, MOST LIKELY SECONDARY TO ATRIAL FIBRILLATION WITH RAPID VENTRICULAR RESPONSE AND POSTURAL HYPOTENSION. 2. POSTURAL HYPERTENSION, RESOLVED. 3. CONGESTIVE HEART FAILURE, MOST LIKELY ACUTE ON CHRONIC SYSTOLIC HEART FAILURE. AT PRESENT COMPENSATED WITHOUT ANY EVIDENCE OF HEART FAILURE. 3. ATRIAL FIBRILLATION AT PRESENT VENTRICULAR RESPONSE IS WELL CONTROLLED. The patient has contraindication with anticoagulation and so he is not on it. 4. ELEVATED TROPONIN I. These have trended down, although it is not an ST elevation NM range. The troponin I level is indeterminate. No definite evidence of non-ST elevation NM. 5. HYPOTENSION. Blood pressure is very well controlled. The patient is tolerating lisinopril at 2.5 mg. Will increase it to 5 mg p.o. q.12 hours which is his usual dose. 6. HISTORY OF FALLS. The patient has very unsteady gait. Patient is being transferred for rehab. 7. CARDIOMYOPATHY, LARGE EJECTION FRACTION ON THE PATIENT WAS AROUND 40% TO 45%. RECOMMENDATIONS: His medication has been reviewed. Would continue the patient on current medication including beta-mata and diuretics and Lipitor and lisinopril. Also continue patient on spironolactone. Will sign off the case and follow the patient in the office. Medical decision making is of moderate complexity in view of the multiple medical problems the patient has and medications have been reviewed thoroughly and discussed the case with Dr. Mccann, the attending physician on the case and also discussed with the patient and the patient's . Will follow the patient up in the office. TIME SPENT: Note 30 minutes spent on the patient with more than 50% of the time spent on direct patient care. Thanking you. DICTATING PHYSICIAN: JOSE ARMANDO CHERRY M.D. 3M 2019 PHY#: [id number] ID: [id number] JOB#: [id number] ACCT: [id number] cc: >
[2018-01-15] MEDS ORDERED: LISINOPRIL 5 MG TABLET PO SCH (22:00)
== END 2018-01-15 15:12 | DRG 292 ==
LOC: ER 11:28 → EH 15:30 → OBSVTOIN 15:30 → 5 18:03
PROVIDERS: ADMIT Internal Medicine; ATTEND Internal Medicine
PROC: 0HQ1XZZ Repair Face Skin, External Approach (ICD-10-PCS; principal; 2018-01-10)
DX: I13.0 Hypertensive heart and chronic kidney disease with heart failure and stage 1 through stage 4 chronic kidney disease, or unspecified chronic kidney disease (principal); S06.0X1A Concussion with loss of consciousness of 30 minutes or less, initial encounter; J96.11 Chronic respiratory failure with hypoxia; I50.42 Chronic combined systolic (congestive) and diastolic (congestive) heart failure; I48.2 Chronic atrial fibrillation; Z66 Do not resuscitate; I95.1 Orthostatic hypotension; S01.112A Laceration without foreign body of left eyelid and periocular area, initial encounter; E11.51 Type 2 diabetes mellitus with diabetic peripheral angiopathy without gangrene; E11.22 Type 2 diabetes mellitus with diabetic chronic kidney disease; N18.3 Chronic kidney disease, stage 3 (moderate); J44.9 Chronic obstructive pulmonary disease, unspecified; I25.10 Atherosclerotic heart disease of native coronary artery without angina pectoris; E78.00 Pure hypercholesterolemia, unspecified; K21.9 Gastro-esophageal reflux disease without esophagitis; W18.39XA Other fall on same level, initial encounter; Y93.01 Activity, walking, marching and hiking; Y92.009 Unspecified place in unspecified non-institutional (private) residence as the place of occurrence of the external cause; Z86.73 Personal history of transient ischemic attack (TIA), and cerebral infarction without residual deficits; Z95.0 Presence of cardiac pacemaker; Z99.81 Dependence on supplemental oxygen; Z79.2 Long term (current) use of antibiotics; Z79.51 Long term (current) use of inhaled steroids; Z79.899 Other long term (current) drug therapy
CPT/HCPCS: 36415; 70450; 80048; 80053; 81001; 83735; 83880; 84484; 85025; 85027; 93005; 93010; 96360; 99285; G0378; G8978-GP; G8979-GP; G8987-GO; G8988-GO; G8989-GO; J1644; J3490; J7030

== ENCOUNTER 2018-02-28 12:50 | Emergency (ER) | payer MEDICARE, BC ==
--- NOTE | 2018-02-28 14:03 | RADIOLOGY REPORT (SQ) ---
EXAM DESCRIPTION: CT HEAD WITHOUT COMPLETED DATE/TIME: 02/28/2018 1:30 pm REASON FOR STUDY: fall COMPARISON: 01/10/2018 TECHNIQUE: Axial images acquired through the brain without intravenous contrast. Images reviewed wi th bone, brain and subdural windows. Additional sagittal and coronal reconstructions were generated. Images stored on PACS. All CT scanners at this facility use dose modulation, iterative reconstruction, and/or weight based d osing when appropriate to reduce radiation dose to as low as reasonably achievable (ALARA). [facility]: Dose Right [facility]: CareDose [facility]: Dose Right [facility]: Teradose 4D [facility]: [employer] RADIATION DOSE: CT Rad equipment meets quality standard of care and radiation dose reduction techniq ues were employed. CTDIvol: 53.2 mGy. DLP: 1070 mGy-cm. mGy. LIMITATIONS: None. FINDINGS: VENTRICLES: Atrophy. 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 Moderate chronic small vessel ischemic disease involvi ng white matter and basal ganglion. No evidence of hemorrhage, mass effect or acute infarction. Norm al patel/white matter differentiation. No areas of low density in the white matter. CEREBELLUM: No masses. No hemorrhage. No alteration of density. No evidence for acute infarction. EXTRAAXIAL SPACES: No fluid collections. No masses. ORBITS AND GLOBE: No intra- or extraconal masses. Normal contour of globe without masses. CALVARIUM: No fracture. PARANASAL SINUSES: No fluid or mucosal thickening. SOFT TISSUES: Scalp injury in the right parietal region with edema and soft tissue gas. OTHER: No other significant finding. IMPRESSION: 1. No evidence of acute event involving the brain. 2. Atrophy, old occipital infarcts and moderate chronic small vessel ischemic disease. 3. Scalp injury. No fracture. EVIDENCE OF ACUTE STROKE: NO. COMMENT: Quality ID # [id number]: Final reports with documentation of one or more dose reduction techniques (e.g., Automated exposure control, adjustment of the mA and/or kV according to patient size, use of iterative reconstruction technique) TECHNICAL DOCUMENTATION: JOB ID: [id number] [employer]- All Rights Reserved Reading location - IP/workstation name: [email or web address]
--- NOTE | 2018-02-28 14:10 | RADIOLOGY REPORT (SQ) ---
EXAM DESCRIPTION: CT CERVICAL SPINE WITHOUT COMPLETED DATE/TIME: 02/28/2018 1:30 pm REASON FOR STUDY: fall COMPARISON: None. TECHNIQUE: Axial images acquired through the cervical spine without intravenous contrast. Images re viewed with lung, soft tissue and bone windows. Reconstructed coronal and sagittal MPR images review ed. Images stored on PACS. All CT scanners at this facility use dose modulation, iterative reconstruction, and/or weight based d osing when appropriate to reduce radiation dose to as low as reasonably achievable (ALARA). [facility]: Dose Right [facility]: CareDose [facility]: Dose Right [facility]: Teradose 4D [facility]: [employer] RADIATION DOSE: CT Rad equipment meets quality standard of care and radiation dose reduction techniq ues were employed. CTDIvol: 12.2 mGy. DLP: 280 mGy-cm. mGy. LIMITATIONS: None. FINDINGS: ALIGNMENT: 2 mm anterior displacement of C4 on C5 with 3 mm anterior displacement of C7 on T1 which appears to be related to degenerative changes. MINERALIZATION: Normal. VERTEBRAL BODIES: No fractures or dislocation. DISCS: Moderate to severe disc space loss at all levels extending from C 2 through T3 with discogenic sclerosis and erosive endplate changes. FACETS, LATERAL MASSES, POSTERIOR ELEMENTS: Severe arthritic changes involving many of the facet join ts with some erosive changes. Multilevel neural foraminal narrowing. HARDWARE: None in the spine. VISUALIZED RIBS: No fractures. LUNG APICES AND SOFT TISSUES: No significant or acute findings. OTHER: No other significant finding. IMPRESSION: 1. Severe arthritic changes without evidence of fracture. TECHNICAL DOCUMENTATION: JOB ID: [id number] Quality ID # [id number]: Final reports with documentation of one or more dose reduction techniques (e.g., Au tomated exposure control, adjustment of the mA and/or kV according to patient size, use of iterative reconstruction technique) 2010 [employer]- All Rights Reserved Reading location - IP/workstation name: [email or web address]
[2018-02-28] MEDS ORDERED: LIDOCAINE 2% INJ (20 MG/ML) 20 ML MDV INJ ONE (14:35)
[2018-02-28] MEDS ORDERED: LIDOCAINE 1% INJ-PF (10 MG/ML) 30 ML SDV ONE (14:37)
--- NOTE | 2018-02-28 14:53 | ER Document Report ---
ED General - General Chief Complaint: Fall Injury Stated Complaint: FALL Time Seen by Provider: 02/28/18 13:01 TRAVEL OUTSIDE OF THE [place] IN LAST 30 DAYS: No - HPI Patient complains to provider of: Fall head injury Notes: Patient coming in from home after a fall. According to the patient has to use a walker to move around have her has dementia and sometimes forgets to use a walker therefore try to stand up states that she heard and felt found in between the bed and dresser. Patient has obvious small laceration to the right occipital parietal region. Patient otherwise alert and oriented no signs of any respiratory distress. Patient is placed in C-spine precautions by EMS. Patient denies any other pain - Related Data Allergies/Adverse Reactions: cortisone Allergy (Verified 11/22/16 16:35) Past Medical History - Social History Smoking Status: Unknown if Ever Smoked Chew tobacco use (# tins/day): No Frequency of alcohol use: None Family History: Hypertension Patient has suicidal ideation: No Patient has homicidal ideation: No - Past Medical History Cardiac Medical History: Reports: Hx Atrial Fibrillation, Hx Congestive Heart Failure, Hx Coronary Artery Disease, Hx Hypercholesterolemia, Hx Hypertension, Hx Peripheral Vascular Disease Pulmonary Medical History: Reports: Hx COPD - Home oxygen dependent, Hx Respiratory Failure - Chronic; home O2 dependent Neurological Medical History: Reports: Hx Cerebrovascular Accident - Once, about 15 years ago. 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 Denies: Hx Peritoneal Dialysis GI Medical History: Reports: Hx Gastroesophageal Reflux Disease Psychiatric Medical History: Reports: Hx Dementia Past Surgical History: Reports: Hx Abdominal Surgery - hernia, Hx Appendectomy, Hx Herniorrhaphy, Hx Pancreatic Surgery, Hx Urinary Tract Surgery - prostate, Other - Prostate surgery, Implantable bladder stimulator - Immunizations Hx Diphtheria, Pertussis, Tetanus Vaccination: Yes Review of Systems - Review of Systems Notes: Dementia Physical Exam - Vital signs Vitals: Temp Pulse Resp BP Pulse Ox 98.1 F 81 16 111/52 L 95 02/28/18 13:11 02/28/18 13:11 02/28/18 13:11 02/28/18 13:11 02/28/18 13:11 Interpretation: Normal - General General appearance: Appears well, Alert - HEENT Head: Normocephalic. No: Atraumatic - Patient with a small laceration to the parieto-occipital region approximately 2 cm Eyes: Normal Pupils: PERRL - Respiratory Respiratory status: No respiratory distress Chest status: Nontender Breath sounds: Normal Chest palpation: Normal - Cardiovascular Rhythm: Regular Heart sounds: Normal auscultation Murmur: No - Abdominal Inspection: Normal Distension: No distension Bowel sounds: Normal Tenderness: Nontender Organomegaly: No organomegaly - Back Back: Normal, Nontender - Extremities General upper extremity: Normal inspection, Nontender, Normal color, Normal ROM , Normal temperature General lower extremity: Normal inspection, Nontender, Normal color, Normal ROM , Normal temperature, Normal weight bearing. No: Steve's sign - Neurological Neuro grossly intact: Yes Cognition: Confused - Psychological Associated symptoms: Normal affect, Normal mood, Confused - Skin Skin Temperature: Warm Skin Moisture: Dry Skin Color: Normal Course - Re-evaluation Re-evalutation: 02/28/18 14:50 Patient coming in for evaluation of the fall. Head CT and cervical spine CT are negative for any acute traumatic findings. On physical examination palpation patient has no other areas of tenderness. Laceration was clean with normal saline 2 sunita were placed. Patient tolerated this well. Family requesting further assistance at home and did have our social work team evaluate the patient. Patient will be discharged back to home encouraged to continue to monitor the patient make sure that he uses gait assistive devices whenever ambulating - Vital Signs Vital signs: Temp Pulse Resp BP Pulse Ox 98.1 F 81 16 111/52 L 95 02/28/18 13:11 02/28/18 13:11 02/28/18 13:11 02/28/18 13:11 02/28/18 13:11 Procedures - Laceration/Wound Repair Right Head Wound length (cm): 2 Wound's Depth, Shape: Superficial Anesthetic type: 1% Lidocaine Volume Anesthetic (mLs): 2 Wound explored: Clean Irrigated w/ Saline (mLs): 500 Wound Repaired With: Hernando Number of Sutures: 2 Complications: No Discharge - Discharge Clinical Impression: Fall Qualifiers: Encounter type: initial encounter Qualified Code(s): W19.XXXA - Unspecified fall, initial encounter Laceration of head Qualifiers: Encounter type: initial encounter Location of open wound of head: unspecified part of head Foreign body presence: without foreign body Qualified Code(s): S01.91XA - Laceration without foreign body of unspecified part of head, initial encounter Condition: Good Disposition: HOME, SELF-CARE Instructions: Antibiotic Ointment Protection ([facility]), Care of Stapled Wounds ([facility] ) Additional Instructions: Your evaluation today shows no traumatic findings and CT scan of the head or the neck. To sunita were placed in your laceration. Please have these removed in the next 7-10 days. He can apply antibiotic ointment to the wound however keep it dry for the next 48 hours. Would recommend that she can introduce Ensure into the patient's diet after meals 3 times a day. Follow-up with your primary care physician return to the ER for any concerns Referrals: RANDY JEFFERY MD [Primary Care Provider] - Follow up in 3-5 days
[2018-02-28 15:49] VITALS: BP 132/65
== END 2018-02-28 15:20 | disposition home or self-care (01) ==
LOC: ER 12:50
PROC: 0HQ0XZZ Repair Scalp Skin, External Approach (ICD-10-PCS; principal; 2018-02-28)
DX: S01.01XA Laceration without foreign body of scalp, initial encounter (principal); W18.30XA Fall on same level, unspecified, initial encounter; Y92.003 Bedroom of unspecified non-institutional (private) residence as the place of occurrence of the external cause; F03.90 Unspecified dementia, unspecified severity, without behavioral disturbance, psychotic disturbance, mood disturbance, and anxiety; I48.91 Unspecified atrial fibrillation; I50.9 Heart failure, unspecified; I25.10 Atherosclerotic heart disease of native coronary artery without angina pectoris; E78.00 Pure hypercholesterolemia, unspecified; J44.9 Chronic obstructive pulmonary disease, unspecified; E11.9 Type 2 diabetes mellitus without complications; I13.0 Hypertensive heart and chronic kidney disease with heart failure and stage 1 through stage 4 chronic kidney disease, or unspecified chronic kidney disease; N18.3 Chronic kidney disease, stage 3 (moderate); Z99.81 Dependence on supplemental oxygen; Z86.73 Personal history of transient ischemic attack (TIA), and cerebral infarction without residual deficits
CPT/HCPCS: 99284; 70450; 72125; 12001; J3490